=== PATIENT | female | born 1980 | race African-American/Black ===

== ENCOUNTER 2020-07-12 09:10 | Inpatient (IN) | payer BC, OTHER ==
[2020-07-12] MEDS ORDERED: Sodium Chloride 0.9% 10 ML Syringe FLUSH PRN (10:07)
[2020-07-12] MEDS ORDERED: Citric Acid/Sodium Citrate Solution 30 ML Cup PO ONE (10:07)
[2020-07-12] MEDS ORDERED: ceFAZolin 2 GM in Premix Bag 1 BAG IV ONE (10:07)
[2020-07-12] MEDS ORDERED: Sodium Chloride 0.9% 2.5 ML Syringe FLUSH PRN (10:07)
[2020-07-12] MEDS ORDERED: Sodium Chloride 0.9% 10 ML SDV IV PRN (10:07)
[2020-07-12] MEDS: Lactated Ringers 1,000 ML IV SCH ×4 (10:15→22:55)
[2020-07-12] MEDS ORDERED: Oxytocin/0.9 % Sodium Chloride 30 UNIT/500 ML BAG IV SCH (10:15)
[2020-07-12] MEDS ORDERED: Oxytocin 10 Units/1 ML SDV ONE (10:24)
[2020-07-12] MEDS ORDERED: Sodium Chloride 0.9% 20 ML ONE (10:25)
[2020-07-12] MEDS ORDERED: ceFAZolin 1 GM Vial ONE (10:25)
[2020-07-12] MEDS ORDERED: Morphine PF 10 MG/10 ML SDV ONE (10:34)
[2020-07-12] MEDS ORDERED: Citric Acid/Sodium Citrate Solution 30 ML Cup ONE (10:34)
[2020-07-12] MEDS ORDERED: Octyl 2-Cyanoacrylate 1 Tube ONE (10:43)
[2020-07-12] MEDS ORDERED: Misoprostol 200 MCG Tab RECTAL PRN (11:43)
[2020-07-12] MEDS ORDERED: Tranexamic Acid 1,000 MG in Sodium Chloride 0.9% 100 ML IV PRN (11:43)
[2020-07-12] MEDS ORDERED: Ondansetron 4 MG/2 ML SDV IVPUSH PRN (11:43)
[2020-07-12] MEDS ORDERED: Lanolin 100% Cream 7 GM Tube TOP PRN (11:43)
[2020-07-12] MEDS ORDERED: Oxytocin 10 Units/1 ML SDV IM PRN (11:43)
[2020-07-12] MEDS ORDERED: diphenhydrAMINE 50 MG/ML SDV IVPUSH PRN (11:43)
[2020-07-12] MEDS ORDERED: Methylergonovine 0.2 MG/1 ML Amp IM PRN (11:43)
[2020-07-12] MEDS ORDERED: Acetaminophen/oxyCODONE 325-5 MG Tab PO PRN ×2 (11:43)
[2020-07-12] MEDS ORDERED: Bisacodyl 10 MG Supp RECTAL PRN (11:43)
--- NOTE | 2020-07-12 11:43 | PCM.LDHP ---
L&D History of Present Illness - General Date of Service: 07/12/20 Admit Problem/Dx: Patient Status Order with Admit Dx/Problem 07/12/20 09:10 Patient Status [ADT] Routine 07/12/20 11:00 Admission Status [Patient Status] [ADT] Routine Admission Diagnosis/Problem Admission Diagnosis/Problem Source of Information: Patient History Limitations: Reports: No Limitations - History of Present Illness Improves with: Reports: None Worsens with: Reports: None Associated Symptoms: Reports: N - Related Data Allergies/Adverse Reactions: Allergies Allergy/AdvReac Type Severity Reaction Status Date / Time No Known Allergies Allergy Verified 07/12/20 09:22 Home Medications: Home Meds Pnv No.95/Ferrous Fum/Folic AC [ Vitamin Tablet] 1 tab PO DAILY 07/09/20 [History] H&P Review of Systems - Review of Systems: Review Of Systems: See Below General: Reports: No Symptoms HEENT: Reports: No Symptoms Pulmonary: Reports: No Symptoms Cardiovascular: Reports: No Symptoms Gastrointestinal: Reports: No Symptoms Genitourinary: Reports: No Symptoms Musculoskeletal: Reports: No Symptoms Skin: Reports: No Symptoms Psychiatric: Reports: No Symptoms Neurological: Reports: No Symptoms Hematologic/Lymphatic: Reports: No Symptoms Immunologic: Reports: No Symptoms L&D Exam - Exam Exam: See Below - Vital Signs Weight: 63.503 kg - OB Specific Contraction Intensity: Moderate Movement: Active Heart Tones: Present Presentation: Vertex - Paul Score Paul Score Cervix Position: Anterior Paul Score Consistency: Soft Paul Score Effacement: >80% Paul Score Dilation: 3-4 cm - Exam General: Alert, Oriented HEENT: PERRLA, Conjunctiva Clear, EACs Clear, EOMI, Hearing Intact, Mucosa Moist & [place], Nares Patent, Normal Nasal Septum, Posterior Pharynx Clear, TMs Clear Neck: Supple, Trachea Midline Lungs: Clear to Auscultation, Normal Respiratory Effort Cardiovascular: Regular Rate, Regular Rhythm GI/Abdominal Exam: Normal Bowel Sounds, Soft, Non-Tender, No Organomegaly, No Distention, No Abnormal Bruit, No Mass, Pelvis Stable Rectal Exam: Normal Exam, Normal Rectal Tone Genitourinary: Normal external exam, Normal bimanual exam, Normal speculum exam Back Exam: Normal Inspection, Full Range of Motion Extremities: Normal Inspection, Normal Range of Motion, Non-Tender, No Pedal Edema, Normal Capillary Refill Skin: Warm, Dry, Intact Neurological: Cranial Nerves Intact, Reflexes Equal Bilateral Psychiatric: Alert, Normal Affect, Normal Mood - Patient Data Lab Results Last 24 hrs: Laboratory Results - last 24 hr 07/12/20 07/12/20 Range/Units 10:20 10:45 WBC 7.13 (4.0-11.0) K/uL RBC 4.54 (4.30-5.90) M/uL Hgb 12.2 (12.0-16.0) g/dL Hct 37.6 (36.0-46.0) % MCV 82.8 (80.0-98.0) fL MCH 26.9 L (27.0-32.0) pg MCHC 32.4 (31.0-37.0) g/dL RDW Std Deviation 44.5 (28.0-62.0) fl RDW Coeff of Janeth 15 (11.0-15.0) % Plt Count 268 (150-400) K/uL MPV 10.50 (7.40-12.00) fL Nucleated RBC % 0.0 /100WBC Nucleated RBCs # 0 K/uL SARS-CoV-2 RNA (RAIN) POSITIVE H (NEGATIVE) Result Diagrams: 07/12/20 10:45 Problem List Initiated/Reviewed/Updated: Yes Orders Last 24hrs: Active Orders 24 hr Category Date Time Status Admission Status [Patient Status] [ADT] Routine ADT 07/12/20 11:00 Active Patient Status [ADT] Routine ADT 07/12/20 09:10 Active Non Stress Test [RC] PER UNIT ROUTINE Care 07/12/20 09:22 Active Notify Provider Vital Signs [RC] PRN Care 07/12/20 10:08 Active Procedure Site Prep Instruct [RC] ASDIRECTED Care 07/12/20 10:07 Active Up ad Aida [RC] ASDIRECTED Care 07/12/20 09:22 Active Vaginal Exam [RC] Click to Edit Care 07/12/20 09:22 Active Verify Patient Consent Obtain [RC] ASDIRECTED Care 07/12/20 10:07 Active Vital Signs [RC] PER UNIT ROUTINE Care 07/12/20 09:22 Active RPR (SYPHILIS SERO) W/ RFLX [REF] Routine Lab 07/12/20 10:07 Ordered TYPE AND SCREEN [BBK] Routine Lab 07/12/20 10:07 Ordered Lactated Ringers [Ringers, Lactated] 1,000 ml Med 07/12/20 10:15 Active IV BOLUS Oxytocin/0.9 % Sodium Chloride [Oxytocin 30 Unit/500 ML Med 07/12/20 10:15 Active -NS] 30 unit in 500 ml IV TITRATE Sodium Chloride 0.9% [Normal Saline] Med 07/12/20 10:07 Active 10 ml IV ASDIRECTED PRN Sodium Chloride 0.9% [Saline Flush] Med 07/12/20 10:07 Active 10 ml FLUSH ASDIRECTED PRN Sodium Chloride 0.9% [Saline Flush] Med 07/12/20 10:07 Active 2.5 ml FLUSH ASDIRECTED PRN Peripheral IV Insertion Adult [OM.PC] Routine Oth 07/12/20 10:07 Ordered Schedule Procedure [COMM] Per Unit Routine Oth 07/12/20 10:07 Ordered Resuscitation Status Routine Resus Stat 07/12/20 09:22 Ordered Medication Orders Lactated Ringer's (Ringers, Lactated) 1,000 mls @ 500 mls/hr IV BOLUS MATTIE Last Admin: 07/12/20 10:39 Dose: 999 mls/hr Documented by: Infusion: 07/12/20 10:39 Dose: 999 mls/hr Documented by: Admin: 07/12/20 10:15 Dose: 999 mls/hr Documented by: EILEEN Oxytocin/Sodium Chloride (Oxytocin 30 Unit/500 Ml-Ns) 30 unit in 500 mls @ 250 mls/hr IV TITRATE MATTIE Sodium Chloride (Sodium Chloride 0.9% 10 Ml Syringe) 10 ml FLUSH ASDIRECTED PRN PRN Reason: Keep Vein Open Sodium Chloride (Sodium Chloride 0.9% 2.5 Ml Syringe) 2.5 ml FLUSH ASDIRECTED PRN PRN Reason: Keep Vein Open Sodium Chloride (Sodium Chloride 0.9% 10 Ml Sdv) 10 ml IV ASDIRECTED PRN PRN Reason: IV Use Assessment/Plan Comment:: Sared uterus inactive labor.
--- NOTE | 2020-07-12 11:47 | PCM.OPNOTE ---
- General Post-Op/Procedure Note Date of Surgery/Procedure: 07/12/20 Operative Procedure(s): Primary C/section. Pre Op Diagnosis: [id number]+3 in active labor. Scared uterus. Post-Op Diagnosis: Same Anesthesia Technique: Spinal Primary Surgeon: Carlton Coughlin English Lecturer: Chanel Rivers EBL in mLs: 700 Complications: None Condition: Stable
[2020-07-12] MEDS: Ketorolac 30 MG/ML SDV IVPUSH SCH ×2 (13:25→19:33)
--- NOTE | 2020-07-12 13:44 | PCM.PREANE ---
Preanesthetic Assessment - Procedure Proposed Procedure: - Anesthesia/Transfusion/Family Hx Anesthesia History: Prior Anesthesia Without Reaction Family History of Anesthesia Reaction: No - Review of Systems General: No Symptoms Pulmonary: No Symptoms Cardiovascular: No Symptoms Gastrointestinal: No Symptoms Neurological: No Symptoms Other: Reports: None - Physical Assessment NPO Status Date: 07/12/20 NPO Status Time: 00:00 Vital Signs: Last Vital Signs Temp 97.0 F 07/12/20 12:04 Pulse 119 H 07/12/20 13:30 Resp 18 07/12/20 13:30 BP 124/79 07/12/20 13:30 Pulse Ox 97 07/12/20 13:30 Height: 5 ft 2 in Weight: 63.503 kg ASA Class: 2E Mental Status: Alert & Oriented x3 Airway Class: Mallampati = 1 Dentition: Reports: Normal Dentition ROM/Head Extension: Full Lungs: Clear to Auscultation, Normal Respiratory Effort Cardiovascular: Regular Rate, Regular Rhythm - Lab Values: Laboratory Last Values WBC 6.28 K/uL (4.0-11.0) 07/12/20 13:05 RBC 5.26 M/uL (4.30-5.90) 07/12/20 13:05 Hgb 14.4 g/dL (12.0-16.0) 07/12/20 13:05 Hct 43.4 % (36.0-46.0) 07/12/20 13:05 MCV 82.5 fL (80.0-98.0) 07/12/20 13:05 MCH 27.4 pg (27.0-32.0) 07/12/20 13:05 MCHC 33.2 g/dL (31.0-37.0) 07/12/20 13:05 RDW Std Deviation 44.5 fl (28.0-62.0) 07/12/20 13:05 RDW Coeff of Janeth 15 % (11.0-15.0) 07/12/20 13:05 Plt Count 240 K/uL (150-400) 07/12/20 13:05 MPV 10.20 fL (7.40-12.00) 07/12/20 13:05 Nucleated RBC % 1.0 /100WBC 07/12/20 13:05 Nucleated RBCs # 0 K/uL 07/12/20 13:05 SARS-CoV-2 RNA (RAIN) POSITIVE (NEGATIVE) H 07/12/20 10:20 - Allergies Allergies/Adverse Reactions: Allergies Allergy/AdvReac Type Severity Reaction Status Date / Time No Known Allergies Allergy Verified 07/12/20 09:22 - Acknowledgements Anesthesia Type Planned: Spinal Pt an Appropriate Candidate for the Planned Anesthesia: Yes Alternatives and Risks of Anesthesia Discussed w Pt/Guardian: Yes Pt/Guardian Understands and Agrees with Anesthesia Plan: Yes PreAnesthesia Questionnaire HEENT History: Reports: None Cardiovascular History: Reports: None Other Respiratory History: history of TB Gastrointestinal History: Reports: GERD Genitourinary History: Reports: None OPTICAL MANAGER History: Reports: LMP (Approximate): Musculoskeletal History: Reports: None Neurological History: Reports: None - Infectious Disease History Infectious Disease History: Reports: TB - HOME MEDS Home Medications: Home Meds Pnv No.95/Ferrous Fum/Folic AC [ Vitamin Tablet] 1 tab PO DAILY 07/09/20 [History] - CURRENT (IN HOUSE) MEDS Current Meds: Current Medications Bisacodyl (Bisacodyl 10 Mg Supp) 10 mg RECTAL ONETIME PRN PRN Reason: Constipation Diphenhydramine HCl (Diphenhydramine 50 Mg/Ml Sdv) 25 mg IVPUSH Q6H PRN PRN Reason: Itching or Nausea Docusate Sodium (Docusate Sodium 100 Mg Cap) 100 mg PO BID MATTIE Emollient Ointment (Lanolin 100% Cream 7 Gm Tube) 0 gm TOP ASDIRECTED PRN PRN Reason: Sore Nipples Lactated Ringer's (Ringers, Lactated) 1,000 mls @ 500 mls/hr IV BOLUS [facility] Last Admin: 07/12/20 10:39 Dose: 999 mls/hr Documented by: Oxytocin/Sodium Chloride (Oxytocin 30 Unit/500 Ml-Ns) 30 unit in 500 mls @ 250 mls/hr IV TITRATE MATTIE Lactated Ringer's (Ringers, Lactated) 1,000 mls @ 125 mls/hr IV ASDIRECTED MATTIE Tranexamic Acid 1,000 mg/ (Sodium Chloride) 110 mls @ 660 mls/hr IV ONETIME PRN PRN Reason: Bleeding Ibuprofen (Ibuprofen 800 Mg Tab) 800 mg PO Q8H PRN PRN Reason: mild pain or fever Ketorolac Tromethamine (Ketorolac 30 Mg/Ml Sdv) 30 mg IVPUSH Q6H MATTIE Stop: 07/13/20 11:46 Last Admin: 07/12/20 13:25 Dose: 30 mg Documented by: Methylergonovine Maleate (Methylergonovine 0.2 Mg/1 Ml Amp) 0.2 mg IM ONETIME PRN PRN Reason: Excessive Vaginal Bleeding Misoprostol (Misoprostol 200 Mcg Tab) 1,000 mcg RECTAL ONETIME PRN PRN Reason: excessive bleeding Ondansetron HCl (Ondansetron 4 Mg/2 Ml Sdv) 4 mg IVPUSH Q4H PRN PRN Reason: Nausea/Vomiting Oxycodone/Acetaminophen (Acetaminophen/Oxycodone 325-5 Mg Tab) 1 tab PO Q4H PRN PRN Reason: Pain (moderate 4-6) Oxycodone/Acetaminophen (Acetaminophen/Oxycodone 325-5 Mg Tab) 2 tab PO Q4H PRN PRN Reason: Pain (moderate 4-6) Oxytocin (Oxytocin 10 Units/1 Ml Sdv) 10 unit IM ASDIRECTED PRN PRN Reason: Excessive Vaginal Bleeding Sodium Chloride (Sodium Chloride 0.9% 10 Ml Syringe) 10 ml FLUSH ASDIRECTED PRN PRN Reason: Keep Vein Open Sodium Chloride (Sodium Chloride 0.9% 2.5 Ml Syringe) 2.5 ml FLUSH ASDIRECTED PRN PRN Reason: Keep Vein Open Sodium Chloride (Sodium Chloride 0.9% 10 Ml Sdv) 10 ml IV ASDIRECTED PRN PRN Reason: IV Use Discontinued Medications Cefazolin Sodium (Cefazolin 1 Gm Vial) Confirm Administered Dose 2 gm .ROUTE .STK-MED ONE Stop: 07/12/20 10:26 Citric Acid/Sodium Citrate (Citric Acid/Sodium Citrate Solution 30 Ml Cup) 30 ml PO ONETIME ONE Stop: 07/12/20 10:08 Citric Acid/Sodium Citrate (Citric Acid/Sodium Citrate Solution 30 Ml Cup) Confirm Administered Dose 30 ml .ROUTE .STK-MED ONE Stop: 07/12/20 10:35 Ephedrine Sulfate (Ephedrine Sulfate 50 Mg/10 Ml Vial) Confirm Administered Dose 50 mg .ROUTE .STK-MED ONE Stop: 07/12/20 12:13 Cefazolin Sodium/Dextrose 2 gm (/ Premix) 50 mls @ 100 mls/hr IV ONETIME ONE Stop: 07/12/20 10:36 Sodium Chloride (Normal Saline) Confirm Administered Dose 20 mls @ as directed .ROUTE .ST-MED ONE Stop: 07/12/20 10:26 Morphine Sulfate (Morphine Pf 10 Mg/10 Ml Sdv) Confirm Administered Dose 10 mg .ROUTE .ST-MED ONE Stop: 07/12/20 10:35 Octyl Cyanoacrylate (Octyl 2-Cyanoacrylate 1 Tube) Confirm Administered Dose 1 applic .ROUTE .ST-MED ONE Stop: 07/12/20 10:44 Oxytocin (Oxytocin 10 Units/1 Ml Sdv) Confirm Administered Dose 20 unit .ROUTE .ST-MED ONE Stop: 07/12/20 10:25
--- NOTE | 2020-07-12 13:47 | PCM.POSTAN ---
POST ANESTHESIA ASSESSMENT - MENTAL STATUS Mental Status: Alert, Oriented - VITAL SIGNS Vital Signs: Last Vital Signs Temp 97.0 F 07/12/20 12:04 Pulse 106 H 07/12/20 13:41 Resp 21 H 07/12/20 13:41 BP 132/94 H 07/12/20 13:41 Pulse Ox 99 07/12/20 13:41 - RESPIRATORY Respiratory Status: Respiratory Rate WNL, Airway Patent, O2 Saturation Stable - CARDIOVASCULAR CV Status: Pulse Rate WNL, Blood Pressure Stable - GASTROINTESTINAL GI Status: [place] Free Text/Narrative:: improved - PAIN Pain Score: 3 - POST OP HYDRATION Hydration Status: Adequate & Stable - OBSERVATIONS Free Text/Narrative:: Had issues with hypotension and 85% on room barbara. Treated with a fluid bolus, ephedrine and phenylephrine. Nasal cannula placed. BP and Sats improved over time.
[2020-07-12] MEDS: Simethicone 80 MG Tab.Chew PO PRN (19:33)
[2020-07-12] MEDS: Docusate Sodium 100 MG Cap PO SCH (20:00)
[2020-07-12] MEDS: Acetaminophen/oxyCODONE 325-5 MG Tab PO PRN (22:41)
[2020-07-12] MEDS ORDERED: hydrOXYzine HCl 25 MG Tab PO ONE (23:28)
[2020-07-13] MEDS: Simethicone 80 MG Tab.Chew PO PRN ×2 (01:49→09:05)
[2020-07-13] MEDS: Ketorolac 30 MG/ML SDV IVPUSH SCH ×3 (01:49→13:32)
--- NOTE | 2020-07-13 07:28 | PCM48HPAN ---
Post Anesthesia Note - EVALUATION WITHIN 48HRS OF ANESTHETIC Vital Signs in Normal Range: Yes Patient Participated in Evaluation: Yes Respiratory Function Stable: Yes Airway Patent: Yes Cardiovascular Function Stable: Yes Hydration Status Stable: Yes Pain Control Satisfactory: Yes Nausea and Vomiting Control Satisfactory: Yes Mental Status Recovered: Yes Vital Signs: Last Vital Signs Temp 97.5 F 07/13/20 05:00 Pulse 112 H 07/13/20 06:00 Resp 16 07/13/20 06:00 BP 111/77 07/13/20 05:00 Pulse Ox 96 07/13/20 06:00 - COMMENTS/OBSERVATIONS Free Text/Narrative:: Pt. reporting some pain overnight but that has improved this morning. Pt . has been up out of bed. Pt. reporting unable to urinate this morning.
--- NOTE | 2020-07-13 07:56 | PCM.PNPP ---
- General Info Date of Service: 07/13/20 Admission Dx/Problem (Free Text): Patient Status Order with Admit Dx/Problem 07/12/20 09:10 Patient Status [ADT] Routine 07/12/20 11:00 Admission Status [Patient Status] [ADT] Routine Admission Diagnosis/Problem Admission Diagnosis/Problem Subjective Update: Ambulating, tolerating diet, bonding well with baby. No concerns/complaints at this time except for mild postoperative pain as expected. Dressing removed; incision well approximated and without drainage. Functional Status: Reports: Pain Controlled, Tolerating Diet, Ambulating - Review of Systems General: Reports: No Symptoms HEENT: Reports: No Symptoms Pulmonary: Reports: No Symptoms Cardiovascular: Reports: No Symptoms Gastrointestinal: Reports: No Symptoms Genitourinary: Reports: No Symptoms Musculoskeletal: Reports: No Symptoms Skin: Reports: No Symptoms Neurological: Reports: No Symptoms Psychiatric: Reports: No Symptoms - General Info Date of Service: 07/13/20 - Patient Data Vital Signs - Most Recent: Last Vital Signs Temp 95.9 F L 07/13/20 07:48 Pulse 115 H 07/13/20 07:48 Resp 17 07/13/20 07:48 BP 111/69 07/13/20 07:48 Pulse Ox 94 L 07/13/20 07:48 Weight - Most Recent: 144 lb I&O - Last 24 Hours: Intake & Output 07/12/20 07/13/20 07/13/20 22:59 06:59 14:59 Intake Total 700 800 Output Total 200 300 Balance 500 500 Lab Results - Last 24 Hours: Laboratory Results - last 24 hr 07/12/20 07/12/20 07/12/20 Range/Units 10:20 10:45 13:05 WBC 7.13 (4.0-11.0) K/uL RBC 4.54 (4.30-5.90) M/uL Hgb 12.2 (12.0-16.0) g/dL Hct 37.6 (36.0-46.0) % MCV 82.8 (80.0-98.0) fL MCH 26.9 L (27.0-32.0) pg MCHC 32.4 (31.0-37.0) g/dL RDW Std Deviation 44.5 (28.0-62.0) fl RDW Coeff of Janeth 15 (11.0-15.0) % Plt Count 268 (150-400) K/uL MPV 10.50 (7.40-12.00) fL Nucleated RBC % 0.0 /100WBC Nucleated RBCs # 0 K/uL SARS-CoV-2 RNA (RAIN) POSITIVE H (NEGATIVE) Blood Type A POSITIVE Antibody Screen NEGATIVE 07/12/20 07/13/20 Range/Units 13:05 05:44 WBC 6.28 (4.0-11.0) K/uL RBC 5.26 (4.30-5.90) M/uL Hgb 14.4 14.1 (12.0-16.0) g/dL Hct 43.4 42.4 (36.0-46.0) % MCV 82.5 (80.0-98.0) fL MCH 27.4 (27.0-32.0) pg MCHC 33.2 (31.0-37.0) g/dL RDW Std Deviation 44.5 (28.0-62.0) fl RDW Coeff of Janeth 15 (11.0-15.0) % Plt Count 240 (150-400) K/uL MPV 10.20 (7.40-12.00) fL Nucleated RBC % 1.0 /100WBC Nucleated RBCs # 0 K/uL SARS-CoV-2 RNA (RAIN) (NEGATIVE) Blood Type Antibody Screen Med Orders - Current: Current Medications Bisacodyl (Bisacodyl 10 Mg Supp) 10 mg RECTAL ONETIME PRN PRN Reason: Constipation Diphenhydramine HCl (Diphenhydramine 50 Mg/Ml Sdv) 25 mg IVPUSH Q6H PRN PRN Reason: Itching or Nausea Docusate Sodium (Docusate Sodium 100 Mg Cap) 100 mg PO BID [facility] Last Admin: 07/12/20 20:00 Dose: 100 mg Documented by: Emollient Ointment (Lanolin 100% Cream 7 Gm Tube) 0 gm TOP ASDIRECTED PRN PRN Reason: Sore Nipples Lactated Ringer's (Ringers, Lactated) 1,000 mls @ 500 mls/hr IV BOLUS [facility] Last Admin: 07/12/20 10:39 Dose: 999 mls/hr Documented by: Oxytocin/Sodium Chloride (Oxytocin 30 Unit/500 Ml-Ns) 30 unit in 500 mls @ 250 mls/hr IV TITRATE [facility] Lactated Ringer's (Ringers, Lactated) 1,000 mls @ 125 mls/hr IV ASDIRECTED [facility] Last Admin: 07/12/20 22:55 Dose: 125 mls/hr Documented by: Tranexamic Acid 1,000 mg/ (Sodium Chloride) 110 mls @ 660 mls/hr IV ONETIME PRN PRN Reason: Bleeding Ibuprofen (Ibuprofen 800 Mg Tab) 800 mg PO Q8H PRN PRN Reason: mild pain or fever Ketorolac Tromethamine (Ketorolac 30 Mg/Ml Sdv) 30 mg IVPUSH Q6H [facility] Stop: 07/13/20 11:46 Last Admin: 07/13/20 01:49 Dose: 30 mg Documented by: Methylergonovine Maleate (Methylergonovine 0.2 Mg/1 Ml Amp) 0.2 mg IM ONETIME PRN PRN Reason: Excessive Vaginal Bleeding Misoprostol (Misoprostol 200 Mcg Tab) 1,000 mcg RECTAL ONETIME PRN PRN Reason: excessive bleeding Ondansetron HCl (Ondansetron 4 Mg/2 Ml Sdv) 4 mg IVPUSH Q4H PRN PRN Reason: Nausea/Vomiting Oxycodone/Acetaminophen (Acetaminophen/Oxycodone 325-5 Mg Tab) 1 tab PO Q4H PRN PRN Reason: Pain (moderate 4-6) Oxycodone/Acetaminophen (Acetaminophen/Oxycodone 325-5 Mg Tab) 2 tab PO Q4H PRN PRN Reason: Pain (severe 7-10) Last Admin: 07/12/20 22:41 Dose: 2 tab Documented by: Oxytocin (Oxytocin 10 Units/1 Ml Sdv) 10 unit IM ASDIRECTED PRN PRN Reason: Excessive Vaginal Bleeding Simethicone (Simethicone 80 Mg Tab.Chew) 80 mg PO Q6H PRN PRN Reason: Indigestion Last Admin: 07/13/20 01:49 Dose: 80 mg Documented by: Sodium Chloride (Sodium Chloride 0.9% 10 Ml Syringe) 10 ml FLUSH ASDIRECTED PRN PRN Reason: Keep Vein Open Sodium Chloride (Sodium Chloride 0.9% 2.5 Ml Syringe) 2.5 ml FLUSH ASDIRECTED PRN PRN Reason: Keep Vein Open Sodium Chloride (Sodium Chloride 0.9% 10 Ml Sdv) 10 ml IV ASDIRECTED PRN PRN Reason: IV Use Discontinued Medications Cefazolin Sodium (Cefazolin 1 Gm Vial) Confirm Administered Dose 2 gm .ROUTE .STK-MED ONE Stop: 07/12/20 10:26 Citric Acid/Sodium Citrate (Citric Acid/Sodium Citrate Solution 30 Ml Cup) 30 ml PO ONETIME ONE Stop: 07/12/20 10:08 Citric Acid/Sodium Citrate (Citric Acid/Sodium Citrate Solution 30 Ml Cup) Confirm Administered Dose 30 ml .ROUTE .STK-MED ONE Stop: 07/12/20 10:35 Ephedrine Sulfate (Ephedrine Sulfate 50 Mg/10 Ml Vial) Confirm Administered Dose 50 mg .ROUTE .STK-MED ONE Stop: 07/12/20 12:13 Hydroxyzine HCl (Hydroxyzine Hcl 25 Mg Tab) 50 mg PO ONETIME ONE Stop: 07/12/20 23:29 Last Admin: 07/12/20 23:41 Dose: 50 mg Documented by: Cefazolin Sodium/Dextrose 2 gm (/ Premix) 50 mls @ 100 mls/hr IV ONETIME ONE Stop: 07/12/20 10:36 Sodium Chloride (Normal Saline) Confirm Administered Dose 20 mls @ as directed .ROUTE .STK-MED ONE Stop: 07/12/20 10:26 Morphine Sulfate (Morphine Pf 10 Mg/10 Ml Sdv) Confirm Administered Dose 10 mg .ROUTE .STK-MED ONE Stop: 07/12/20 10:35 Octyl Cyanoacrylate (Octyl 2-Cyanoacrylate 1 Tube) Confirm Administered Dose 1 applic .ROUTE .STK-MED ONE Stop: 07/12/20 10:44 Oxycodone/Acetaminophen (Acetaminophen/Oxycodone 325-5 Mg Tab) 2 tab PO Q4H PRN PRN Reason: Pain (moderate 4-6) Oxytocin (Oxytocin 10 Units/1 Ml Sdv) Confirm Administered Dose 20 unit .ROUTE .STK-MED ONE Stop: 07/12/20 10:25 - Infant Interaction Infant Disposition, : [place] in Room with Family Interaction: Other (see below) (FOB holding baby) Feeding: Bottle Fed Infant Support Person: - Recovery Exam Fundal Tone: Firm Fundal Level: At Umbilicus Fundal Placement: Midline Lochia Amount: Scant Lochia Color: Rubra/Red Perineum Description: Intact, Minimal Bruising/Swelling Episiotomy/Laceration: None Bladder Status: Indwelling Catheter in Place Urinary Elimination: Other (see below) Other Urinary Elimination, : due to void - Exam General: Alert, Oriented, Cooperative, No Acute Distress Lungs: Normal Respiratory Effort Cardiovascular: Regular Rate, Regular Rhythm GI/Abdominal Exam: Soft, Non-Tender Extremities: Normal Inspection Skin: Warm, Dry, Intact Wound/Incisions: Healing Well Neurological: No New Focal Deficit Psy/Mental Status: Alert, Normal Affect, Normal Mood - Problem List & Annotations (1) S/P primary low transverse SNOMED Code(s): 074101885, [id number], [id number], [id number], [id number] Code(s): Z98.891 - HISTORY OF UTERINE SCAR FROM PREVIOUS SURGERY Status: Acute Priority: High Current Visit: Yes - Problem List Review Problem List Initiated/Reviewed/Updated: Yes - My Orders Last 24 Hours: My Active Orders 07/12/20 20:00 Simethicone 80 mg PO Q6H PRN - Plan Plan:: Sared uterus inactive labor. PP Day1 A: Ambulating, tolerating diet, bonding well with baby. No concerns/complaints at this time except for mild postoperative pain as expected. Dressing removed; incision well approximated and without drainage. P: Routine plan of care.
[2020-07-13] MEDS: Docusate Sodium 100 MG Cap PO SCH (09:05)
[2020-07-13] MEDS: Acetaminophen/oxyCODONE 325-5 MG Tab PO PRN (17:33)
[2020-07-13] MEDS: Lactated Ringers 1,000 ML IV SCH (20:19)
[2020-07-14] MEDS: Acetaminophen/oxyCODONE 325-5 MG Tab PO PRN ×3 (01:08→20:27)
[2020-07-14] MEDS: Docusate Sodium 100 MG Cap PO SCH ×3 (01:09→20:29)
[2020-07-14] MEDS: Lactated Ringers 1,000 ML IV SCH (01:09)
[2020-07-14] MEDS: Simethicone 80 MG Tab.Chew PO PRN ×3 (08:38→21:52)
[2020-07-14] MEDS: Ibuprofen 800 MG Tab PO PRN ×2 (09:34→17:03)
--- NOTE | 2020-07-14 10:34 | OR ---
SURGEON: Carlton Coughlin MD DATE OF PROCEDURE: 07/12/2020 PREOPERATIVE DIAGNOSES: 1. Intrauterine at 38+ three weeks, in active labor. 2. 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 POSTOPERATIVE DIAGNOSES: 1. Intrauterine at 38+ three weeks, in active labor. 2. 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 OPERATION PERFORMED: Primary low transverse section. PRIMARY SURGEON: Carlton Coughlin MD. OCCUPATIONAL HEALTH AND SAFETY OFFICER: Chanel Rivers, certified nurse spring coverer. ANESTHESIA: Spinal. ESTIMATED BLOOD LOSS: 700 mL. COMPLICATIONS: None. FINDING: Female fetus. score reported to be 8 and 9. Weight is not available. Normal uterus, tubes, and ovaries. INDICATION FOR SURGERY: This patient is a 40-year-old. She is followed in our clinic. She is a primigravida. She previously had a myomectomy in [place] which is confirmed by operative report and the patient is going to have a primary section. She presented today to Labor and Delivery in active labor. She was scheduled to have section next , but because she is in active labor and she is dilated, we are proceeding with her primary today. PROCEDURE IN DETAIL: The patient was brought to the OR, properly identified. After adequate level of spinal anesthesia with a Kang catheter in the bladder, the patient was prepped and draped in sterile fashion as usual. Low transverse Pfannenstiel skin incision was done excising the old scar from her myomectomy. The Bernice fascia and rectus fascia were opened in direction of the incision. The two recti muscles were . Peritoneal cavity was entered. Bladder flap was raised in the usual manner and retracted from the lower uterine segment. Low- transverse uterine incision was done and extended manually with hand. Fetus was in a vertex position, delivered immediately without any problem, cried immediately, and later on the score reported to be 8 and 9. The weight was not available. The placenta delivered spontaneous, complete, and intact. Repair of the lower uterine segment was done with 2-0 Vicryl continuous interlocking in two layers. Reperitonealization done with 3-0 Vicryl continuous. Inspection of the lower uterine segment showed no oozing, no bleeding. The peritoneal cavity evacuated completely from all blood and blood clot, and closed with 3-0 Vicryl continuous. The rectus fascia was closed with #1 double strand PDS continuous, the Bernice fascia with 3-0 Vicryl continuous, and the skin closed with 3-0 Vicryl on a Andres needle in a subcuticular fashion. Instrument and sponge count was correct. The patient tolerated the procedure well, went to recovery room in stable general condition. JW / LANCE /[id number]
[2020-07-14] MEDS ORDERED: Furosemide 20 MG Tab PO ONE (17:00)
--- NOTE | 2020-07-14 17:01 | PCM.PNPP ---
- General Info Date of Service: 07/14/20 Admission Dx/Problem (Free Text): Patient Status Order with Admit Dx/Problem 07/12/20 09:10 Patient Status [ADT] Routine 07/12/20 11:00 Admission Status [Patient Status] [ADT] Routine Admission Diagnosis/Problem Admission Diagnosis/Problem Subjective Update: Doing better. Ambulating, tolerating diet, bonding well with baby. Pain better controlled with ibuprofen and percocet. Kang cath was removed and patient able to void 300cc. Denies dysuria or difficulty emptying her bladder. Reports some SOB. But denies CP, palpitations, dizziness. Incision well approximated and without drainage. Functional Status: Reports: Pain Controlled - Review of Systems HEENT: Reports: No Symptoms Pulmonary: Reports: Shortness of Breath Cardiovascular: Reports: No Symptoms Gastrointestinal: Reports: No Symptoms Genitourinary: Reports: No Symptoms Musculoskeletal: Reports: No Symptoms Skin: Reports: No Symptoms Psychiatric: Reports: No Symptoms - General Info Date of Service: 07/14/20 - Patient Data Vital Signs - Most Recent: Last Vital Signs Temp 95.5 F L 07/14/20 16:00 Pulse 129 H 07/14/20 16:00 Resp 23 H 07/14/20 16:00 BP 124/57 L 07/14/20 16:00 Pulse Ox 91 L 07/14/20 16:00 Weight - Most Recent: 65.317 kg I&O - Last 24 Hours: Intake & Output 07/14/20 07/14/20 07/14/20 06:59 14:59 22:59 Output Total 450 200 Balance -450 -200 Lab Results - Last 24 Hours: Laboratory Results - last 24 hr 07/12/20 07/13/20 Range/Units 13:05 22:10 WBC 5.78 (4.0-11.0) K/uL RBC 4.81 (4.30-5.90) M/uL Hgb 13.1 (12.0-16.0) g/dL Hct 38.3 (36.0-46.0) % MCV 79.6 L (80.0-98.0) fL MCH 27.2 (27.0-32.0) pg MCHC 34.2 (31.0-37.0) g/dL RDW Std Deviation 40.9 (28.0-62.0) fl RDW Coeff of Janeth 15 (11.0-15.0) % Plt Count 370 (150-400) K/uL MPV 10.90 (7.40-12.00) fL Add Manual Diff YES Neutrophils % (Manual) 9 L (48.0-80.0) % Band Neutrophils % 65 % Lymphocytes % (Manual) 9 L (16.0-40.0) % Monocytes % (Manual) 17 H (0.0-15.0) % Nucleated RBC % 0.8 /100WBC Absolute Seg Neuts 0.5 L (1.4-5.7) Band Neutrophils # 3.8 Lymphocytes # (Manual) 0.5 L (0.6-2.4) Monocytes # (Manual) 1.0 H (0.0-0.8) Nucleated RBCs # 0 K/uL RPR Non-Reac (Non-Reac) Med Orders - Current: Current Medications Bisacodyl (Bisacodyl 10 Mg Supp) 10 mg RECTAL ONETIME PRN PRN Reason: Constipation Diphenhydramine HCl (Diphenhydramine 50 Mg/Ml Sdv) 25 mg IVPUSH Q6H PRN PRN Reason: Itching or Nausea Docusate Sodium (Docusate Sodium 100 Mg Cap) 100 mg PO BID [facility] Last Admin: 07/14/20 08:16 Dose: 100 mg Documented by: Emollient Ointment (Lanolin 100% Cream 7 Gm Tube) 0 gm TOP ASDIRECTED PRN PRN Reason: Sore Nipples Furosemide (Furosemide 20 Mg Tab) 20 mg PO ONETIME ONE Stop: 07/14/20 17:01 Lactated Ringer's (Ringers, Lactated) 1,000 mls @ 500 mls/hr IV BOLUS [facility] Last Admin: 07/12/20 10:39 Dose: 999 mls/hr Documented by: Oxytocin/Sodium Chloride (Oxytocin 30 Unit/500 Ml-Ns) 30 unit in 500 mls @ 250 mls/hr IV TITRATE MATTIE Lactated Ringer's (Ringers, Lactated) 1,000 mls @ 125 mls/hr IV ASDIRECTED [facility] Last Admin: 07/14/20 01:09 Dose: 125 mls/hr Documented by: Tranexamic Acid 1,000 mg/ (Sodium Chloride) 110 mls @ 660 mls/hr IV ONETIME PRN PRN Reason: Bleeding Ibuprofen (Ibuprofen 800 Mg Tab) 800 mg PO Q8H PRN PRN Reason: mild pain or fever Last Admin: 07/14/20 09:34 Dose: 800 mg Documented by: Methylergonovine Maleate (Methylergonovine 0.2 Mg/1 Ml Amp) 0.2 mg IM ONETIME PRN PRN Reason: Excessive Vaginal Bleeding Misoprostol (Misoprostol 200 Mcg Tab) 1,000 mcg RECTAL ONETIME PRN PRN Reason: excessive bleeding Ondansetron HCl (Ondansetron 4 Mg/2 Ml Sdv) 4 mg IVPUSH Q4H PRN PRN Reason: Nausea/Vomiting Oxycodone/Acetaminophen (Acetaminophen/Oxycodone 325-5 Mg Tab) 1 tab PO Q4H PRN PRN Reason: Pain (moderate 4-6) Oxycodone/Acetaminophen (Acetaminophen/Oxycodone 325-5 Mg Tab) 2 tab PO Q4H PRN PRN Reason: Pain (severe 7-10) Last Admin: 07/14/20 08:16 Dose: 2 tab Documented by: Oxytocin (Oxytocin 10 Units/1 Ml Sdv) 10 unit IM ASDIRECTED PRN PRN Reason: Excessive Vaginal Bleeding Simethicone (Simethicone 80 Mg Tab.Chew) 80 mg PO Q6H PRN PRN Reason: Indigestion Last Admin: 07/14/20 16:10 Dose: 80 mg Documented by: Sodium Chloride (Sodium Chloride 0.9% 10 Ml Syringe) 10 ml FLUSH ASDIRECTED PRN PRN Reason: Keep Vein Open Sodium Chloride (Sodium Chloride 0.9% 2.5 Ml Syringe) 2.5 ml FLUSH ASDIRECTED PRN PRN Reason: Keep Vein Open Sodium Chloride (Sodium Chloride 0.9% 10 Ml Sdv) 10 ml IV ASDIRECTED PRN PRN Reason: IV Use Discontinued Medications Cefazolin Sodium (Cefazolin 1 Gm Vial) Confirm Administered Dose 2 gm .ROUTE .STK-MED ONE Stop: 07/12/20 10:26 Citric Acid/Sodium Citrate (Citric Acid/Sodium Citrate Solution 30 Ml Cup) 30 ml PO ONETIME ONE Stop: 07/12/20 10:08 Last Admin: 07/14/20 03:57 Dose: Not Given Documented by: Citric Acid/Sodium Citrate (Citric Acid/Sodium Citrate Solution 30 Ml Cup) Confirm Administered Dose 30 ml .ROUTE .STK-MED ONE Stop: 07/12/20 10:35 Last Admin: 07/14/20 03:57 Dose: Not Given Documented by: Ephedrine Sulfate (Ephedrine Sulfate 50 Mg/10 Ml Vial) Confirm Administered Dose 50 mg .ROUTE .STK-MED ONE Stop: 07/12/20 12:13 Hydroxyzine HCl (Hydroxyzine Hcl 25 Mg Tab) 50 mg PO ONETIME ONE Stop: 07/12/20 23:29 Last Admin: 07/12/20 23:41 Dose: 50 mg Documented by: Cefazolin Sodium/Dextrose 2 gm (/ Premix) 50 mls @ 100 mls/hr IV ONETIME ONE Stop: 07/12/20 10:36 Last Admin: 07/14/20 03:57 Dose: Not Given Documented by: Sodium Chloride (Normal Saline) Confirm Administered Dose 20 mls @ as directed .ROUTE .STK-MED ONE Stop: 07/12/20 10:26 Ketorolac Tromethamine (Ketorolac 30 Mg/Ml Sdv) 30 mg IVPUSH Q6H MATTIE Stop: 07/13/20 11:46 Last Admin: 07/13/20 13:32 Dose: 30 mg Documented by: Morphine Sulfate (Morphine Pf 10 Mg/10 Ml Sdv) Confirm Administered Dose 10 mg .ROUTE .STK-MED ONE Stop: 07/12/20 10:35 Octyl Cyanoacrylate (Octyl 2-Cyanoacrylate 1 Tube) Confirm Administered Dose 1 applic .ROUTE .STK-MED ONE Stop: 07/12/20 10:44 Last Admin: 07/14/20 03:57 Dose: Not Given Documented by: Oxycodone/Acetaminophen (Acetaminophen/Oxycodone 325-5 Mg Tab) 2 tab PO Q4H PRN PRN Reason: Pain (moderate 4-6) Oxytocin (Oxytocin 10 Units/1 Ml Sdv) Confirm Administered Dose 20 unit .ROUTE .STK-MED ONE Stop: 07/12/20 10:25 - Interaction Infant Disposition, : in Room with Family Infant Interaction: Other (see below) (FOB holding baby) Feeding: Bottle Fed Infant Support Person: - Recovery Exam Fundal Tone: Firm Fundal Level: At Umbilicus Fundal Placement: Midline Lochia Amount: Scant Lochia Color: Rubra/Red Perineum Description: Intact, Minimal Bruising/Swelling Episiotomy/Laceration: None Bladder Status: Voiding, Indwelling Catheter in Place Urinary Elimination: Voided, Other (see below) Other Urinary Elimination, : attempted to void but could not - Exam General: Alert, Oriented Lungs: Crackles Cardiovascular: Regular Rate, Regular Rhythm, Tachycardia GI/Abdominal Exam: Soft Extremities: Pedal Edema Wound/Incisions: Healing Well Psy/Mental Status: Alert, Normal Affect, Normal Mood - Problem List & Annotations (1) S/P primary low transverse SNOMED Code(s): 701955383, 02831258, 901743789, 967735690, 032044414 Code(s): Z98.891 - HISTORY OF UTERINE SCAR FROM PREVIOUS SURGERY Status: Acute Priority: High Current Visit: Yes - Problem List Review Problem List Initiated/Reviewed/Updated: Yes - My Orders Last 24 Hours: My Active Orders 07/14/20 17:00 Furosemide [Lasix] 20 mg PO ONETIME ONE - Plan Plan:: PP Day2 A: Ambulating, tolerating diet, bonding well with baby. Kang cath removed and voiding SOB and lower lobes crackles on auscultation. O2 sat have been normal for the most part. Low concern for PE. P: Routine plan of care. 20mg Lasix 1 time
[2020-07-15] MEDS: Ibuprofen 800 MG Tab PO PRN (01:10)
[2020-07-15] MEDS ORDERED: cefOXitin 1 GM in Premix Bag 1 BAG IV ONE (05:00)
--- NOTE | 2020-07-15 06:05 | CR ---
Indication: Hypothermia, COVID 19 infection, hypoglycemia Technique: Chest 1 view Comparison: April 29, 2019 Findings/Impression: Normal cardiomediastinal silhouette. Lung volumes are low. Faint opacities at both lung bases likely represent atelectasis or COVID-19 infection. No pneumothorax. No acute osseous abnormality. Dictated by Anisha Contreras MD @ 07/15/2020 6:04:[address] Anisha Contreras @ Jul 15 2020 6:04AM
--- NOTE | 2020-07-15 06:07 | CR ---
Indication: Hypothermia, hypoglycemia Technique: KUB supine view Comparison: None Findings/Impression: : Air-filled but nondilated loops of small bowel right lower quadrant. No definite free air identified on this supine view. No pneumatosis. No abnormal calcifications. Osseous structures intact. Consider CT abdomen pelvis for further evaluation. Dictated by Anisha Contreras MD @ 07/15/2020 6:06:[address] Anisha Contreras @ Jul 15 2020 6:06AM
[2020-07-15 06:48] LABS: BLOOD UREA NITROGEN,BUN 31 mg/dL (7.0-18.0); CHLORIDE,CL 102 mmol/L (98-107); POTASSIUM,K 5.3 mmol/L (3.5-5.1); SODIUM,NA 136 mmol/L (136-145)
[2020-07-15] MEDS ORDERED: 25% Dextrose in Water 10 ML Syringe IVPUSH ONE (07:02)
[2020-07-15 07:06] LABS: GLUCOSE RANDOM 22 mg/dL (74-106)
[2020-07-15] MEDS ORDERED: 50% Dextrose in Water 50 ML Syringe IVPUSH ONE ×2 (07:14→11:07)
--- NOTE | 2020-07-15 07:14 | PCM.PNPP ---
- General Info Date of Service: 07/15/20 Admission Dx/Problem (Free Text): Patient Status Order with Admit Dx/Problem 07/12/20 09:10 Patient Status [ADT] Routine 07/12/20 11:00 Admission Status [Patient Status] [ADT] Routine Admission Diagnosis/Problem Admission Diagnosis/Problem Subjective Update: Overnight, patient was found to be hypothermic (94) which improved upon repeat. She also reports feeling cold, cold sweats and increased fatigue, abdominal tenderness and distention. VS were otherwise wnl. Her BG was reportedly 22 Denied dysuria or difficulty emptying her bladder. She had a recent UOP of 40 0cc dark yellow. Reports some SOB. But denies CP, palpitations, dizziness. Functional Status: Reports: New Symptoms - Review of Systems General: Reports: No Symptoms, Weakness, Fatigue, Chills HEENT: Reports: No Symptoms Pulmonary: Reports: Shortness of Breath Cardiovascular: Reports: No Symptoms Gastrointestinal: Reports: Abdominal Pain, Other Genitourinary: Reports: No Symptoms Musculoskeletal: Reports: No Symptoms Skin: Reports: No Symptoms Neurological: Reports: No Symptoms Psychiatric: Reports: No Symptoms Systems Review Comment:: Abd distention and diffuse tenderness - General Info Date of Service: 07/15/20 - Patient Data Vital Signs - Most Recent: Last Vital Signs Temp 84.5 F L 07/15/20 03:00 Pulse 107 H 07/15/20 03:00 Resp 24 H 07/15/20 03:00 BP 106/78 07/15/20 03:00 Pulse Ox 96 07/15/20 03:00 Weight - Most Recent: 65.317 kg Lab Results - Last 24 Hours: Laboratory Results - last 24 hr 07/12/20 07/15/20 07/15/20 Range/Units 13:05 04:30 04:30 WBC 3.69 L (4.0-11.0) K/uL RBC 5.74 (4.30-5.90) M/uL Hgb 15.8 (12.0-16.0) g/dL Hct 44.3 (36.0-46.0) % MCV 77.2 L (80.0-98.0) fL MCH 27.5 (27.0-32.0) pg MCHC 35.7 (31.0-37.0) g/dL RDW Std Deviation 40.8 (28.0-62.0) fl RDW Coeff of Janeth 15 (11.0-15.0) % Plt Count 353 (150-400) K/uL MPV 10.90 (7.40-12.00) fL Nucleated RBC % 1.5 /100WBC Nucleated RBCs # 0 K/uL Sodium (136-145) mmol/L Potassium (3.5-5.1) mmol/L Chloride (98-107) mmol/L Carbon Dioxide (21.0-32.0) mmol/L BUN (7.0-18.0) mg/dL Creatinine (0.6-1.0) mg/dL Est Cr Clr Drug Dosing mL/min Estimated GFR (MDRD) ml/min Glucose 19 L* (74-106) mg/dL Calcium (8.5-10.1) mg/dL Total Bilirubin (0.2-1.0) mg/dL ALT (14-63) IU/L Alkaline Phosphatase (46-116) U/L Total Protein (6.4-8.2) g/dL Albumin (3.4-5.0) g/dL Globulin (2.6-4.0) g/dL Albumin/Globulin Ratio (0.9-1.6) Urine Color Urine Appearance Urine pH (5.0-8.0) Ur Specific Rosebud (1.001-1.035) Urine Protein (NEGATIVE) mg/dL Urine Glucose (UA) (NEGATIVE) mg/dL Urine Ketones (NEGATIVE) mg/dL Urine Occult Blood (NEGATIVE) Urine Nitrite (NEGATIVE) Urine Bilirubin (NEGATIVE) Urine Ictotest Urine Urobilinogen (<2.0) EU/dL Ur Leukocyte Esterase (NEGATIVE) U Hyaline Cast (Auto) (0-2/LPF) Urine RBC (0-2/HPF) Urine WBC (0-5/HPF) Ur Epithelial Cells (NONE-FEW) Urine Bacteria (NEGATIVE) Urine Mucus (NONE-MOD) RPR Non-Reac (Non-Reac) 07/15/20 07/15/20 Range/Units 04:30 04:40 WBC (4.0-11.0) K/uL RBC (4.30-5.90) M/uL Hgb (12.0-16.0) g/dL Hct (36.0-46.0) % MCV (80.0-98.0) fL MCH (27.0-32.0) pg MCHC (31.0-37.0) g/dL RDW Std Deviation (28.0-62.0) fl RDW Coeff of Janeth (11.0-15.0) % Plt Count (150-400) K/uL MPV (7.40-12.00) fL Nucleated RBC % /100WBC Nucleated RBCs # K/uL Sodium 136 (136-145) mmol/L Potassium 5.3 H (3.5-5.1) mmol/L Chloride 102 (98-107) mmol/L Carbon Dioxide 13.0 L (21.0-32.0) mmol/L BUN 31 H (7.0-18.0) mg/dL Creatinine 1.0 (0.6-1.0) mg/dL Est Cr Clr Drug Dosing 61.86 mL/min Estimated GFR (MDRD) > 60.0 ml/min Glucose 22 L* (74-106) mg/dL Calcium 7.3 L (8.5-10.1) mg/dL Total Bilirubin 0.2 (0.2-1.0) mg/dL ALT 16 (14-63) IU/L Alkaline Phosphatase 105 (46-116) U/L Total Protein 4.8 L (6.4-8.2) g/dL Albumin 1.4 L (3.4-5.0) g/dL Globulin 3.4 (2.6-4.0) g/dL Albumin/Globulin Ratio 0.4 L (0.9-1.6) Urine Color DARK YELLOW Urine Appearance SLT CLOUDY Urine pH 5.5 (5.0-8.0) Ur Specific Rosebud 1.025 (1.001-1.035) Urine Protein 30 H (NEGATIVE) mg/dL Urine Glucose (UA) NEGATIVE (NEGATIVE) mg/dL Urine Ketones NEGATIVE (NEGATIVE) mg/dL Urine Occult Blood MODERATE H (NEGATIVE) Urine Nitrite NEGATIVE (NEGATIVE) Urine Bilirubin MODERATE H (NEGATIVE) Urine Ictotest NEGATIVE Urine Urobilinogen 1.0 (<2.0) EU/dL Ur Leukocyte Esterase NEGATIVE (NEGATIVE) U Hyaline Cast (Auto) 0-2 (0-2/LPF) Urine RBC 3-6 (0-2/HPF) Urine WBC 0-3 (0-5/HPF) Ur Epithelial Cells RARE (NONE-FEW) Urine Bacteria FEW (NEGATIVE) Urine Mucus LIGHT (NONE-MOD) RPR (Non-Reac) Med Orders - Current: Current Medications Bisacodyl (Bisacodyl 10 Mg Supp) 10 mg RECTAL ONETIME PRN PRN Reason: Constipation Dextrose/Water (25% Dextrose In Water 10 Ml Syringe) 20 ml IVPUSH ONETIME ONE Stop: 07/15/20 07:03 Diphenhydramine HCl (Diphenhydramine 50 Mg/Ml Sdv) 25 mg IVPUSH Q6H PRN PRN Reason: Itching or Nausea Last Admin: 07/15/20 06:25 Dose: 25 mg Documented by: Docusate Sodium (Docusate Sodium 100 Mg Cap) 100 mg PO BID [facility] Last Admin: 07/14/20 20:29 Dose: 100 mg Documented by: Emollient Ointment (Lanolin 100% Cream 7 Gm Tube) 0 gm TOP ASDIRECTED PRN PRN Reason: Sore Nipples Lactated Ringer's (Ringers, Lactated) 1,000 mls @ 500 mls/hr IV BOLUS [facility] Last Admin: 07/12/20 10:39 Dose: 999 mls/hr Documented by: Oxytocin/Sodium Chloride (Oxytocin 30 Unit/500 Ml-Ns) 30 unit in 500 mls @ 250 mls/hr IV TITRATE [facility] Lactated Ringer's (Ringers, Lactated) 1,000 mls @ 125 mls/hr IV ASDIRECTED [facility] Last Admin: 07/14/20 01:09 Dose: 125 mls/hr Documented by: Tranexamic Acid 1,000 mg/ (Sodium Chloride) 110 mls @ 660 mls/hr IV ONETIME PRN PRN Reason: Bleeding Ibuprofen (Ibuprofen 800 Mg Tab) 800 mg PO Q8H PRN PRN Reason: mild pain or fever Last Admin: 07/15/20 01:10 Dose: 800 mg Documented by: Methylergonovine Maleate (Methylergonovine 0.2 Mg/1 Ml Amp) 0.2 mg IM ONETIME PRN PRN Reason: Excessive Vaginal Bleeding Misoprostol (Misoprostol 200 Mcg Tab) 1,000 mcg RECTAL ONETIME PRN PRN Reason: excessive bleeding Ondansetron HCl (Ondansetron 4 Mg/2 Ml Sdv) 4 mg IVPUSH Q4H PRN PRN Reason: Nausea/Vomiting Oxycodone/Acetaminophen (Acetaminophen/Oxycodone 325-5 Mg Tab) 1 tab PO Q4H PRN PRN Reason: Pain (moderate 4-6) Oxycodone/Acetaminophen (Acetaminophen/Oxycodone 325-5 Mg Tab) 2 tab PO Q4H PRN PRN Reason: Pain (severe 7-10) Last Admin: 07/14/20 20:27 Dose: 2 tab Documented by: Oxytocin (Oxytocin 10 Units/1 Ml Sdv) 10 unit IM ASDIRECTED PRN PRN Reason: Excessive Vaginal Bleeding Simethicone (Simethicone 80 Mg Tab.Chew) 80 mg PO Q6H PRN PRN Reason: Indigestion Last Admin: 07/14/20 21:52 Dose: 80 mg Documented by: Sodium Chloride (Sodium Chloride 0.9% 10 Ml Syringe) 10 ml FLUSH ASDIRECTED PRN PRN Reason: Keep Vein Open Sodium Chloride (Sodium Chloride 0.9% 2.5 Ml Syringe) 2.5 ml FLUSH ASDIRECTED PRN PRN Reason: Keep Vein Open Sodium Chloride (Sodium Chloride 0.9% 10 Ml Sdv) 10 ml IV ASDIRECTED PRN PRN Reason: IV Use Discontinued Medications Cefazolin Sodium (Cefazolin 1 Gm Vial) Confirm Administered Dose 2 gm .ROUTE .STK-MED ONE Stop: 07/12/20 10:26 Citric Acid/Sodium Citrate (Citric Acid/Sodium Citrate Solution 30 Ml Cup) 30 ml PO ONETIME ONE Stop: 07/12/20 10:08 Last Admin: 07/14/20 03:57 Dose: Not Given Documented by: Citric Acid/Sodium Citrate (Citric Acid/Sodium Citrate Solution 30 Ml Cup) Confirm Administered Dose 30 ml .ROUTE .STK-MED ONE Stop: 07/12/20 10:35 Last Admin: 07/14/20 03:57 Dose: Not Given Documented by: Ephedrine Sulfate (Ephedrine Sulfate 50 Mg/10 Ml Vial) Confirm Administered Dose 50 mg .ROUTE .STK-MED ONE Stop: 07/12/20 12:13 Furosemide (Furosemide 20 Mg Tab) 20 mg PO ONETIME ONE Stop: 07/14/20 17:01 Last Admin: 07/14/20 17:04 Dose: 20 mg Documented by: Hydroxyzine HCl (Hydroxyzine Hcl 25 Mg Tab) 50 mg PO ONETIME ONE Stop: 07/12/20 23:29 Last Admin: 07/12/20 23:41 Dose: 50 mg Documented by: Cefazolin Sodium/Dextrose 2 gm (/ Premix) 50 mls @ 100 mls/hr IV ONETIME ONE Stop: 07/12/20 10:36 Last Admin: 07/14/20 03:57 Dose: Not Given Documented by: Sodium Chloride (Normal Saline) Confirm Administered Dose 20 mls @ as directed .ROUTE .STK-MED ONE Stop: 07/12/20 10:26 Ceftriaxone Sodium/Dextrose (Rocephin In Dextrose,Iso-Osm 1 Gm/50 Ml) 50 mls @ 200 mls/hr IV ONETIME ONE Stop: 07/15/20 05:17 Last Admin: 07/15/20 05:19 Dose: 200 mls/hr Documented by: Ceftriaxone Sodium/Dextrose (Rocephin In Dextrose,Iso-Osm 1 Gm/50 Ml) Confirm Administered Dose 50 mls @ as directed .ROUTE .STK-MED ONE Stop: 07/15/20 05:09 Ketorolac Tromethamine (Ketorolac 30 Mg/Ml Sdv) 30 mg IVPUSH Q6H MATTIE Stop: 07/13/20 11:46 Last Admin: 07/13/20 13:32 Dose: 30 mg Documented by: Morphine Sulfate (Morphine Pf 10 Mg/10 Ml Sdv) Confirm Administered Dose 10 mg .ROUTE .STK-MED ONE Stop: 07/12/20 10:35 Octyl Cyanoacrylate (Octyl 2-Cyanoacrylate 1 Tube) Confirm Administered Dose 1 applic .ROUTE .STK-MED ONE Stop: 07/12/20 10:44 Last Admin: 07/14/20 03:57 Dose: Not Given Documented by: Oxycodone/Acetaminophen (Acetaminophen/Oxycodone 325-5 Mg Tab) 2 tab PO Q4H PRN PRN Reason: Pain (moderate 4-6) Oxytocin (Oxytocin 10 Units/1 Ml Sdv) Confirm Administered Dose 20 unit .ROUTE .STK-MED ONE Stop: 07/12/20 10:25 - Interaction Disposition, : in Room with Family Infant Interaction: Other (see below) (FOB holding baby) Infant Feeding: Bottle Fed Support Person: - Recovery Exam Fundal Tone: Firm Fundal Level: At Umbilicus Fundal Placement: Midline Lochia Amount: Scant Lochia Color: Rubra/Red Perineum Description: Intact, Minimal Bruising/Swelling Episiotomy/Laceration: None Bladder Status: Voiding, Indwelling Catheter in Place Urinary Elimination: Voided, Other (see below) Other Urinary Elimination, : attempted to void but could not - Exam General: Alert, Oriented HEENT: Pupils Equal Lungs: Decreased Breath Sounds (Crackles at the base of the lungs) Cardiovascular: Regular Rate GI/Abdominal Exam: Distended, Tender Extremities: Pedal Edema Wound/Incisions: Healing Well - Problem List & Annotations (1) S/P primary low transverse SNOMED Code(s): 416631579, 08299072, 508897743, 856966384, 176570543 Code(s): Z98.891 - HISTORY OF UTERINE SCAR FROM PREVIOUS SURGERY Status: Acute Priority: High Current Visit: Yes (2) Hypoglycemia after GI (gastrointestinal) surgery SNOMED Code(s): 551655585 Code(s): K91.2 - POSTSURGICAL MALABSORPTION, NOT ELSEWHERE CLASSIFIED Status: Acute Current Visit: Yes (3) Ileus, postoperative SNOMED Code(s): 856437300 Code(s): K91.89 - OTH POSTPROCEDURAL COMPLICATIONS AND DISORDERS OF DGSTV SYS; K56.7 - ILEUS, UNSPECIFIED Status: Acute Current Visit: Yes - Problem List Review Problem List Initiated/Reviewed/Updated: Yes - My Orders Last 24 Hours: My Active Orders 07/15/20 04:08 CULTURE BLOOD [BC] Stat CULTURE BLOOD [BC] Stat Blood Culture x2 Reflex Set [OM.PC] Stat 07/15/20 04:40 CULTURE URINE [RM] Routine 07/15/20 07:02 Dextrose 25% in Water 20 ml IVPUSH ONETIME ONE 07/15/20 07:04 Abdomen Pelvis wo Cont [CT] Routine Chest wo Cont [CT] Routine - Plan Plan:: PP Day3 A: Kang cath removed and voiding. Hypothermic (94-96), hypoglycemic and diaphoretic. WBC 3.5 SOB and lower lobes crackles on auscultation. O2 sat have been normal for the most part. Low concern for PE. DDx includes UTI, Pneumonia, sepsis, Ileus vs SBO. CXR showed atelectasis of lower lobes Abd Xray with air-filled bowel Recommend a CT. P: Per assessment of work-up and clinical evaluation and discussion with On-call medicine, Patient does not fit a picture of sepsis. Likely Ileus vs SBO. Will obtain a CT abdomen and chest. Ordered blood cultures, CBC, CMP and UA + UCx Hypoglycemia treated with D5 50% and IVF 1/2 D5 Patient received 1g IV ceftriaxone for concern of UTI. Routine plan of care.
--- NOTE | 2020-07-15 09:02 | CT ---
INDICATION: Atelectasis. COVID positive. Hyperglycemia. . TECHNIQUE: CT chest without contrast. COMPARISON: None FINDINGS: Lungs and pleura: There are diffuse bilateral patchy ground-glass infiltrates. Bilateral symmetrical consolidations are in the posterior lung bases. No pleural effusions, pleural thickening, or pneumothorax. Heart and vasculature: Heart size is normal. Thoracic aorta and pulmonary artery are normal in caliber. Lymph nodes/mediastinum: No mediastinal, hilar, or axillary adenopathy. Thyroid gland is normal. Chest wall: No masses. Upper abdomen: Findings in the abdomen will be detailed on a separate CT abdomen pelvis report. Bones: Unremarkable for age. IMPRESSION: Acute moderately severe COVID pneumonitis. Please note that all CT scans at this facility use dose modulation, iterative reconstruction, and/or weight-based dosing when appropriate to reduce radiation dose to as low as reasonably achievable. Dictated by Babar Trejo MD @ 07/15/2020 9:01:[address] Babar Trejo @ Jul 15 2020 9:01AM
--- NOTE | 2020-07-15 09:06 | CT ---
INDICATION: Abdominal distention and tenderness. Postop day 3 . TECHNIQUE: CT abdomen and pelvis without contrast. COMPARISON: None. FINDINGS: Lower chest: Details in the chest are provided on a separate CT chest report. Liver: Normal in size and attenuation. No masses. Gallbladder and bile ducts: Few small gallbladder stones. Otherwise unremarkable. Pancreas: Unremarkable. No mass or inflammation. Spleen: Normal in size. No masses. Adrenal glands: Normal in size. No nodules. Kidneys: Normal in size. No suspicious masses, stones, or hydronephrosis. GI tract: Stomach is moderately distended with fluid. Remainder of the GI tract is normal in caliber and appearance. No obstructive changes. Vasculature: Abdominal aorta normal in caliber. Lymph nodes: No lymphadenopathy. Abdominal wall/Omentum/Peritoneum: Relatively large amount of free fluid in the abdomen and pelvis with loculated components. Hounsfield units of this fluid is less than 10 consistent with ascites type fluid. No convincing evidence for hemorrhage or hematoma. There is expected free air. Pelvis: uterus. Nondependent air present in the urinary bladder which is mildly distended with fluid but otherwise unremarkable. Bones: Unremarkable for age. IMPRESSION: 1. Relatively large amount of ascitic type fluid in the abdomen with loculated components. This is more than what is typically seen postoperatively. 2. Postoperative changes otherwise within normal limits. 3. Moderate fluid distention of the stomach. GI tract is otherwise unremarkable. Please note that all CT scans at this facility use dose modulation, iterative reconstruction, and/or weight-based dosing when appropriate to reduce radiation dose to as low as reasonably achievable. Dictated by Babar Trejo MD @ 07/15/2020 9:05:[address] Babar Trejo @ Jul 15 2020 9:05AM
[2020-07-15] MEDS ORDERED: Dexamethasone 4 MG/ML SDV IVPUSH ONE (09:45)
[2020-07-15] MEDS ORDERED: Dextrose 5%-Lactated Ringers 1,000 ML IV ONE (10:00)
[2020-07-15] MEDS ORDERED: REMDESIVIR 200 MG in Sodium Chloride 0.9% 250 ML IV ONE (10:00)
--- NOTE | 2020-07-15 11:09 | PN ---
[facility] Physician - Brief Progress GytpTEVSRXNOF90/29/2021 10:20[facility] Giovanni Knutson, [place] - WINIFRED (MONIE) - WINIFRED RIBEIROTed DANTE REED, COVID+Date of Service 07/15/2020 1 0:20HPI/Events of Note eICU admission [id number] female currently admitted to the ICU for acute hypoxic respiratory failure secondary to COVID-19. Patient initially admitted on 07/12/2020 for C-sec tion at 38 weeks and underwent uncomplicated surgery at that time. Patient was noted to be hypoxic r equiring upwards of 6 L nasal cannula which was eventually weaned down to room air. Postoperatively patient had relatively good course with being able to ambulate and pain control had been adequate. Ov ernight from 07/14 to 07/15 patient became hypothermic(94) as well as hypoglycemic down to blood glucos e of 22. Bedside team initiated sepsis workup and started emprically on ceftriaxone for UTI. She unde rwent CT chest which revealed bilateral pulmonary infiltrates consistent with Covid pneumonitis. CT abdomen revealed ascites without concern for any hematoma/hemorrhage as well as normal post operative changes.Patient seen on camera, sitting up in bed, does not appear to be in acute distress at this t camelia and appears comfortable. NG tube and Nasal canula in placeVital signs reviewed. HR 130sLabs/EMR /imaging reviewedSepsis-Unclear etiology at this time-Tachycardic, Leukopenic, hypoxic on 2L-UA negat micheal, CT abd with ascites and no other acute findings. CT chest consistent with COVID pneumonitis (wit hout contrast). -Agree with broad spectrum Abx coverage with Vanc/Zosyn. Ordered blood cultures, proc alcitonin and lactate. -Recommend to continue decadron to complete course. -Recommend discussing with ID in regards to Remdesevir (unclear duration of symptoms)-Recommend LE duplex scan to workup for VT E. If negative, will need to consider CT chest with contrast. -Recommend keeping patient euvolemic, s trict I/O's and daily weight trend. Agree with holding off on diuresis today but likely can resume to hairston if BP allows. -If patient has worsening abdominal pain, can consider diagnostic paracentesis t o rule out SBP. -Recommend frequent BG checks, as patient is now on Decadron, hypoglycemia should not be an issue. Thank you for allowing us to participate in the care of this patient. Unless otherwise specified defer implementation of above recommendations to bedside provider. Please do not hesitate t o contact eICU for any questions, clarification or assistance with implementation of above.Interventi ons Major-Hypoxemia - evaluation and management, Infection - evaluation and management, Sepsis - eval uation and management
--- NOTE | 2020-07-15 11:16 | CR ---
Indication: Tube placement. Technique: Abdomen 1 view. Comparison: CT abdomen pelvis July 15, 2020. Impression: NG tube is in satisfactory position with the tip in the mid stomach. Re-demonstration of pulmonary infiltrates. No other acute abnormality evident. Dictated by Babar Trejo MD @ 07/15/2020 11:14:[address] Babar Trejo @ Jul 15 2020 11:14AM
[2020-07-15] MEDS ORDERED: Morphine 2 MG/ML SYRINGE IVPUSH PRN (11:23)
--- NOTE | 2020-07-15 11:52 | PCM.CONS ---
H&P History of Present Illness - General Date of Service: 07/15/20 Admit Problem/Dx: Patient Status Order with Admit Dx/Problem 07/12/20 09:10 Patient Status [ADT] Routine 07/12/20 11:00 Admission Status [Patient Status] [ADT] Routine Admission Diagnosis/Problem Admission Diagnosis/Problem - History of Present Illness Initial Comments - Free Text/Narative: Patient is a 40 y/o F admitted to ICU for Acute hypoxic respiratory failure sec. to COVID-19. Patient was admitted on 07/12/20 at 38 weeks for CS, the CS was was done with no known complications except that there was a lot of scarring encountered from patients previous myomectomy surgery. Patient has needed 6 L of oxygen via NC and was eventually weaned off to room air. Upon chart review patient was hypothermic and tachycardiac for 24 to 48 hours, BP was stable, over night on 07/15 patient was found to have increasing abdominal distension, she was also hypoglycemic, patients hemodynamics were stable, Medicine was called for recs while basic labs and xray abdomen were pending, IV rocephin was given for UTI , it was recommenced to obtain stat CT abdomen, CXR, stat CBC, CMP, blood cultures, dextrose IV 50% 1/2 amp, and also start patient on dextrose LR, and given IV Zosyn. Several attempts were made for the blood draw but only few labs could be drawn, blood cultures were no drawn as a result. Patients CT abdomen moderate fluid distension of stomach, and showed large ascites fluid with loculated components, no hematoma/hemorrhage and normal post op changes. CT chest showed b/l pulmonary infiltrates consistent with covid pneumonia, showed large amount of fluid in stomach. Patient was admitted to ICU and medicine team is on consult for sepsis and respiratory failure. NG tube was placed as well,, Patient eventually ended up having IJ central line as there was one 1 IV access, and patient needed stat antibiotics and fluids. 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 Denies: Fever Pulmonary: Reports: Shortness of Breath. Denies: Pleuritic Chest Pain, Sputum Cardiovascular: Reports: Dyspnea on Exertion. Denies: Chest Pain, Palpitations Gastrointestinal: Reports: Abdominal Pain, Constipation, Decreased Appetite, Nausea. Denies: Anorexia, Black Stool, Vomiting Genitourinary: Denies: Frequency, Burning Musculoskeletal: Denies: Shoulder Pain, Arm Pain Skin: Denies: Jaundice, Mottled, Pallor Psychiatric: Denies: Depression, Mood Lability, Anxiety Neurological: Denies: Dizziness, Headache, Numbness Exam - Exam Exam: See Below - Vital Signs Vital Signs: Last Vital Signs Temp 35.7 C L 07/15/20 06:55 Pulse 113 H 07/15/20 06:55 Resp 23 H 07/15/20 06:55 BP 134/87 07/15/20 06:55 Pulse Ox 93 L 07/15/20 06:55 Weight: 65.317 kg - Exam Quality Assessment: Supplemental Oxygen General: Alert, Oriented, Mild Distress HEENT: Conjunctiva Clear Neck: Supple Lungs: Decreased Breath Sounds, Crackles Cardiovascular: Regular Rate, Normal S1, Normal S2 GI/Abdominal Exam: Distended, Tender, Abnormal Bowel Sounds, Splenomegaly. No: Soft, Hepatomegaly Extremities: Normal Inspection, Normal Range of Motion - Patient Data Lab Results Last 24 hrs: Laboratory Results - last 24 hr 07/12/20 07/15/20 07/15/20 Range/Units 13:05 04:30 04:30 WBC 3.69 L (4.0-11.0) K/uL RBC 5.74 (4.30-5.90) M/uL Hgb 15.8 (12.0-16.0) g/dL Hct 44.3 (36.0-46.0) % MCV 77.2 L (80.0-98.0) fL MCH 27.5 (27.0-32.0) pg MCHC 35.7 (31.0-37.0) g/dL RDW Std Deviation 40.8 (28.0-62.0) fl RDW Coeff of Janeth 15 (11.0-15.0) % Plt Count 353 (150-400) K/uL MPV 10.90 (7.40-12.00) fL Nucleated RBC % 1.5 /100WBC Nucleated RBCs # 0 K/uL Sodium (136-145) mmol/L Potassium (3.5-5.1) mmol/L Chloride (98-107) mmol/L Carbon Dioxide (21.0-32.0) mmol/L BUN (7.0-18.0) mg/dL Creatinine (0.6-1.0) mg/dL Est Cr Clr Drug Dosing mL/min Estimated GFR (MDRD) ml/min Glucose 19 L* (74-106) mg/dL Calcium (8.5-10.1) mg/dL Total Bilirubin (0.2-1.0) mg/dL AST (15-37) IU/L ALT (14-63) IU/L Alkaline Phosphatase (46-116) U/L Total Protein (6.4-8.2) g/dL Albumin (3.4-5.0) g/dL Globulin (2.6-4.0) g/dL Albumin/Globulin Ratio (0.9-1.6) Urine Color Urine Appearance Urine pH (5.0-8.0) Ur Specific [place] (1.001-1.035) Urine Protein (NEGATIVE) mg/dL Urine Glucose (UA) (NEGATIVE) mg/dL Urine Ketones (NEGATIVE) mg/dL Urine Occult Blood (NEGATIVE) Urine Nitrite (NEGATIVE) Urine Bilirubin (NEGATIVE) Urine Ictotest Urine Urobilinogen (<2.0) EU/dL Ur Leukocyte Esterase (NEGATIVE) U Hyaline Cast (Auto) (0-2/LPF) Urine RBC (0-2/HPF) Urine WBC (0-5/HPF) Ur Epithelial Cells (NONE-FEW) Urine Bacteria (NEGATIVE) Urine Mucus (NONE-MOD) RPR Non-Reac (Non-Reac) 07/15/20 07/15/20 Range/Units 04:30 04:40 WBC (4.0-11.0) K/uL RBC (4.30-5.90) M/uL Hgb (12.0-16.0) g/dL Hct (36.0-46.0) % MCV (80.0-98.0) fL MCH (27.0-32.0) pg MCHC (31.0-37.0) g/dL RDW Std Deviation (28.0-62.0) fl RDW Coeff of Janeth (11.0-15.0) % Plt Count (150-400) K/uL MPV (7.40-12.00) fL Nucleated RBC % /100WBC Nucleated RBCs # K/uL Sodium 136 (136-145) mmol/L Potassium 5.3 H (3.5-5.1) mmol/L Chloride 102 (98-107) mmol/L Carbon Dioxide 13.0 L (21.0-32.0) mmol/L BUN 31 H (7.0-18.0) mg/dL Creatinine 1.0 (0.6-1.0) mg/dL Est Cr Clr Drug Dosing 61.86 mL/min Estimated GFR (MDRD) > 60.0 ml/min Glucose 22 L* (74-106) mg/dL Calcium 7.3 L (8.5-10.1) mg/dL Total Bilirubin 0.2 (0.2-1.0) mg/dL AST 53 H (15-37) IU/L ALT 16 (14-63) IU/L Alkaline Phosphatase 105 (46-116) U/L Total Protein 4.8 L (6.4-8.2) g/dL Albumin 1.4 L (3.4-5.0) g/dL Globulin 3.4 (2.6-4.0) g/dL Albumin/Globulin Ratio 0.4 L (0.9-1.6) Urine Color DARK YELLOW Urine Appearance SLT CLOUDY Urine pH 5.5 (5.0-8.0) Ur Specific [place] 1.025 (1.001-1.035) Urine Protein 30 H (NEGATIVE) mg/dL Urine Glucose (UA) NEGATIVE (NEGATIVE) mg/dL Urine Ketones NEGATIVE (NEGATIVE) mg/dL Urine Occult Blood MODERATE H (NEGATIVE) Urine Nitrite NEGATIVE (NEGATIVE) Urine Bilirubin MODERATE H (NEGATIVE) Urine Ictotest NEGATIVE Urine Urobilinogen 1.0 (<2.0) EU/dL Ur Leukocyte Esterase NEGATIVE (NEGATIVE) U Hyaline Cast (Auto) 0-2 (0-2/LPF) Urine RBC 3-6 (0-2/HPF) Urine WBC 0-3 (0-5/HPF) Ur Epithelial Cells RARE (NONE-FEW) Urine Bacteria FEW (NEGATIVE) Urine Mucus LIGHT (NONE-MOD) RPR (Non-Reac) Result Diagrams: 07/15/20 04:30 07/15/20 04:30 Sepsis Event Note - Evaluation Sepsis Screening Result: Sepsis Risk Current Stage of Sepsis: Sepsis - Focused Exam Sepsis Event Note Statement: Focused Sepsis Exam Completed Vital Signs: Vital Signs Temp Pulse Resp BP Pulse Ox 07/15/20 06:55 35.7 C L 113 H 23 H 134/87 93 L 07/15/20 03:00 29.2 C L 107 H 24 H 106/78 96 Consult PN Assessment/Plan Procedures: Procedures ASSAY OF GONADOTROPIN (FSH) (12/17/17) ASSAY OF GONADOTROPIN (LH) (12/17/17) ASSAY OF PROGESTERONE (02/06/18) ASSAY OF PROLACTIN (12/17/17) ASSAY OF TOTAL ESTRADIOL (12/17/17) ASSAY THYROID STIM HORMONE (12/17/17) BLOOD TYPING SEROLOGIC ABO (01/12/20) BLOOD TYPING SEROLOGIC RH(D) (01/12/20) CALE DNA DIR PROBE (06/25/20) CATHETER FOR HYSTEROGRAPHY (12/21/17) CHORIONIC GONADOTROPIN TEST (11/20/19) CHYLMD TRACH DNA AMP PROBE (01/12/20) COMPLETE CBC AUTOMATED (04/07/20) COMPREHEN METABOLIC PANEL (01/06/20) DRUG TEST PRSMV DIR OPT OBS (01/12/20) VILLA VAG DNA DIR PROBE (06/25/20) GLUCOSE TEST (04/07/20) GLYCOSYLATED HEMOGLOBIN TEST (01/06/20) HEPATITIS B SURFACE AG IA (01/12/20) HEPATITIS C AB TEST (01/12/20) HIV-1 AG W/HIV-1 & -2 AB AG IA (01/12/20) LIPID PANEL (01/06/20) N.GONORRHOEAE DNA AMP PROB (01/12/20) OB US >/= 14 WKS SNGL FETUS (03/08/20) PROTHROMBIN TIME (04/14/19) RBC ANTIBODY SCREEN (04/07/20) ROUTINE VENIPUNCTURE (04/07/20) RUBELLA ANTIBODY (01/12/20) STREP B DNA AMP PROBE (06/25/20) SYPHILIS TEST NON-TREP QUAL (01/12/20) TB TEST CELL IMMUN MEASURE (04/09/19) THROMBOPLASTIN TIME PARTIAL (04/14/19) TRANSVAGINAL US OBSTETRIC (03/08/20) TRICHOMONAS VAGIN DIR PROBE (06/25/20) URINALYSIS AUTO W/O SCOPE (01/12/20) URINE CULTURE/COLONY COUNT (01/12/20) VITAMIN D 25 HYDROXY (01/06/20) X-RAY EXAM CHEST 2 VIEWS (04/29/19) X-RAY FEMALE GENITAL TRACT (12/21/17) (1) Acute respiratory failure with hypoxia SNOMED Code(s): 06625401, 701604618 Code(s): J96.01 - ACUTE RESPIRATORY FAILURE WITH HYPOXIA Current Visit: Yes (2) Ascites SNOMED Code(s): 791781224 Code(s): R18.8 - OTHER ASCITES Current Visit: Yes (3) Hypoglycemia after GI (gastrointestinal) surgery SNOMED Code(s): 549501197 Code(s): K91.2 - POSTSURGICAL MALABSORPTION, NOT ELSEWHERE CLASSIFIED Current Visit: Yes (4) Ileus, postoperative SNOMED Code(s): 564432156 Code(s): K91.89 - OTH POSTPROCEDURAL COMPLICATIONS AND DISORDERS OF DGSTV SYS; K56.7 - ILEUS, UNSPECIFIED Current Visit: Yes (5) S/P primary low transverse SNOMED Code(s): 656210486, 19571227, 700749734, 559011217, 377946767 Code(s): Z98.891 - HISTORY OF UTERINE SCAR FROM PREVIOUS SURGERY Priority: High Current Visit: Yes (6) Sepsis SNOMED Code(s): 36368574 Code(s): A41.9 - SEPSIS, UNSPECIFIED ORGANISM Current Visit: Yes Problem List Initiated/Reviewed/Updated: Yes Plan: 40 y/o F admitted to icu for sepsis, possible source pulmonary vs intraabdominal Start 30 cc/kg IV fluids, check lactate start IV vancomycin and Zosyn f/u on blood cultures f/u on urine cultures cont NPO, NG tube management Insert Kang for accurate ins and out Combivent as needed NC fbor oxygenation IV remdesivir and IV dexamethasone Lovenox for dvt ppx Daily labs, monitor and replete electrolytes' check PT/INR
[2020-07-15] MEDS: Docusate Sodium 100 MG Cap PO SCH (14:11)
[2020-07-15] MEDS: Dextrose 5%-Lactated Ringers 1,000 ML IV SCH ×2 (15:09→18:30)
--- NOTE | 2020-07-15 15:14 | PCM.SN.2 ---
Central Line Insertion - Central Line Insertion Site: subclavian (R) Prep: Sterile Drapes, Chlorhexidine Local Anesthesia - Lidocaine (Xylocaine): 1% Plain Local Anesthetic Volume: 5cc Ultrasound guided: Yes CL Complications: No Secured with suture: Yes Post placement confirmation: CXR, all ports aspirated Dressing applied: by provider
--- NOTE | 2020-07-15 15:19 | CR ---
Indication: Central line placement Comparison: Single view chest July 15, 2020 Technique: Single AP view chest Findings: Again seen are extensive interstitial and airspace opacities throughout the bilateral hemithoraces likely representing edema versus multifocal infiltrate. There is stable nasogastric tube. Interval placement of right IJ central venous catheter with the tip likely within the right atrium. Consider pulling back approximately 5-7 centimeters into the mid superior vena cava and cavoatrial junction. The cardiac silhouette is mildly prominent. The bony thorax is grossly intact. Impression: Again seen are extensive interstitial and airspace opacities throughout the bilateral hemithoraces likely representing multifocal infiltrates. Interval placement of right IJ central venous catheter which is somewhat low lying likely projecting over the right atrium. If there is persistent clinical concern consider pulling back approximately 5 centimeters to position within the mid superior vena cava and there were cavoatrial junction. No evidence of pneumothorax. Dictated by Caleb Richards MD @ 07/15/2020 3:17:[address] Caleb Richards @ Jul 15 2020 3:17PM
[2020-07-15] MEDS ORDERED: Dextrose 5%-Lactated Ringers 1,000 ML IV SCH (15:30)
[2020-07-15] MEDS ORDERED: Diatrizoate Meglumine 18% w/v 300 ML Bottle IUTERINE STA (15:34)
--- NOTE | 2020-07-15 15:56 | CR ---
INDICATION: History of myomectomy. Rule out bladder injury. TECHNIQUE: KUB and 7 images from a cystogram. COMPARISON: Today`s abdomen/pelvis CT. FINDINGS: The filled bladder demonstrates grossly normal configuration. No extravasation of contrast material is evident. IMPRESSION : Negative cystogram. Dictated by Madhu Nixon MD @ 07/15/2020 3:54:[address] Madhu Nixon @ Jul 15 2020 3:54PM
--- NOTE | 2020-07-15 16:57 | CR ---
HISTORY: Recheck IJ line placement. COMPARISON: From earlier today at 1414 hours FINDINGS: A portable semi-erect AP view of the chest was obtained at 16 20 hours. During the interval, the right internal jugular central line has been withdrawn and the tip is now in satisfactory position at the cavoatrial junction. There is no sign of pneumothorax. A nasogastric tube is again seen passing into the body of the stomach. There has been a decrease in atelectasis in the medial right lung base, with clearing of the right hemidiaphragm, with mild patchy residual atelectasis. There has been decreased patchy infiltrate scattered throughout the perihilar regions bilaterally, consistent with improving atelectasis versus congestive failure. There continues to be mild patchy atelectasis in the left lung base. The heart remains normal in size. The mediastinum is normal in appearance. The osseous structures are normal in appearance for the patient`s age. IMPRESSION: Satisfactory positioning of right internal jugular central line status post withdrawal, tip now at the cavoatrial junction. Continued satisfactory positioning of NG tube. Improvement in mild congestive failure versus mild bilateral patchy perihilar atelectasis. Improvement in atelectasis of the medial right lung base, now mild. Dictated by Rj Kenney MD @ 07/15/2020 4:57:[address] Rj Kenney @ Jul 15 2020 4:57PM
[2020-07-15] MEDS ORDERED: 50% Dextrose in Water 50 ML Syringe IVPUSH PRN (17:32)
[2020-07-15] MEDS ORDERED: Piperacillin/Tazobactam 4.5 GM in Sodium Chloride 0.9% 100 ML IV SCH (18:00)
[2020-07-15] MEDS ORDERED: Lactated Ringers 1,000 ML IV ONE (19:00)
[2020-07-15] MEDS ORDERED: Meropenem 2 GM in Sodium Chloride 0.9% 100 ML IV SCH (19:15)
[2020-07-15 19:21] LABS: POTASSIUM,K 4.2 mmol/L (3.5-5.1)
[2020-07-15] MEDS ORDERED: Magnesium Sulfate/Water 2 GM/50 ML BAG IV ONE (19:33)
[2020-07-15] MEDS ORDERED: MEROPENEM IV SCH (20:00)
[2020-07-15] MEDS ORDERED: LORazepam 2 MG/ML SDV IVPUSH ONE (20:13)
[2020-07-15] MEDS ORDERED: Dextrose 10% in Water 1,000 ML IV SCH (20:15)
--- NOTE | 2020-07-15 20:18 | PN ---
[facility] Physician - Brief Progress [id number]/29/2021 20:00[facility] Giovanni Knutson, [place] - WINIFRED (MONIE) - WINIFRED ICUDANTE CHAVEZ, COVROLAN+Date of Service 07/15/2020 2 0:00HPI/Events of Note eICU updateDiscussed patient with excellent bedside physician in regards to wo rsening sepsis. Patient initially with a lactate of 4.5 which is up trended to 5.7 after sepsis bolu s and continuation of IV fluids. Patient has been escalated on antibiotics from vancomycin/Zosyn to vancomycin and meropenem. Patient does have slight uptrending creatinine to 1.2 despite getting adeq uately resuscitated with IV fluids. Patient also remains hypoglycemic and was initiated on D5/LR dur ing the course of the day today as well.Plan-Agree with broadening antibiotic coverage with vancomyci n and meropenem. If patient becomes further septic/hypotensive recommend escalating further with add ition of antifungal coverage with Eraxis/micafungin-Recommend albumin 5% 500 mL bolus at this time. Repeat lactate in a few hours.-If lactate remains persistently elevated agree with bedside physician will need CT abdomen to rule out ischemic colitis and also obtain CT PE protocol at the same time.-Re commend stopping D5/LR maintenance fluids as patient has significant hypoalbuminemia and this likely will third space. Recommend initiating D10 to help with hypoglycemia. And give IV fluid/albumin miguel us as needed.-If work-up tonight is relatively unremarkable will need IR guided paracentesis to rule out peritonitis as possible etiology for patient's ongoing sepsis.Interventions Major-Infection - carlos luation and management, Sepsis - evaluation and management
--- NOTE | 2020-07-15 20:24 | PCM.SN.2 ---
- Free Text/Narrative Note: notified by RN lactate trending up, patients tachycardia is getting better, BP is on higher side, stat CBC, CMP obtained, shows some elevation of creatinine, bicarb improving. Given patients GI symptoms and elevated lactate , ischemic colitis is high on differential vs worsening sepsis due to possible peritonitis Findings unlikely due to covid pneumonia as respiratory status has improved, hypoxia and atelectasis has resolved after stomach decompression Will give IV fluid bolus, recheck lactate again in <6 hours bolus with albumin 5% start dextrose 10% fluids If no significant improvement in lactate or trends higher will get CTA abd and pelvis to r/o occlusive thrombus to r/o ischemic colitis Will continue to monitor closely
[2020-07-15] MEDS ORDERED: Albumin 5% 500 ML IV ONE (20:30)
[2020-07-15] MEDS ORDERED: Dextrose 10% in Water 500 ML IV SCH (20:45)
[2020-07-15] MEDS ORDERED: Enoxaparin 40 MG/0.4 ML Syringe SUBCUT SCH (21:00)
[2020-07-15] MEDS: Piperacillin/Tazobactam 4.5 GM in Sodium Chloride 0.9% 100 ML IV SCH ×2 (21:03→21:05)
[2020-07-15] MEDS: 50% Dextrose in Water 50 ML Syringe IVPUSH PRN ×2 (21:30→23:21)
[2020-07-15] MEDS ORDERED: Diltiazem 25 MG/5 ML SDV IVPUSH ONE ×2 (22:03→22:36)
[2020-07-15] MEDS ORDERED: Diltiazem 25 MG/5 ML SDV ONE (22:05)
[2020-07-15] MEDS ORDERED: Digoxin 500 MCG/2 ML Amp IVPUSH ONE (23:09)
--- NOTE | 2020-07-15 23:13 | PN ---
[facility] Physician - Brief Progress NjdbRUZIAWSTO19/29/2021 23:08[facility] Giovanni zurita, [place] - KAYCEN (MONIE) - MWN ICUDANTE CHAVEZ, SHARYN+Date of Service 07/15/2020 2 3:08HPI/Events of Note Notified by bedside RN that patient went into A fib with RVRBedside doctor has given a total of 40 mg IV diltiazemHR is in 110sRN told me that the patient is agitated and confused and was given ativan by bedside MDOn camera, she is restless and tachycardic, not hypotensiveBelly e xam is unchangedHas been given fluid resuscitation as well as ambuminPlan:Start precedex infusionMay need diltiazem infusion if rate remains uncontrolled despite precedex Will need to consider scanning head, chest and abdomen pelvis with contrast to look at potential PE/ belly ischemia Check a CBC BMP and magm with lactate nowBedside MD coming in, have requested that I be called to discuss May need to transfer her to a higher care centerInterventions Major-Arrhythmia - evaluation and management, Seps is - evaluation and management
[2020-07-15] MEDS ORDERED: Dexmedetomidine 200 MCG/2 ML SDV IV SCH (23:15)
[2020-07-15 23:30] LABS: CARBON DIOXIDE,CO2 17.6 mmol/L (21.0-32.0); POTASSIUM,K 4.5 mmol/L (3.5-5.1)
--- NOTE | 2020-07-15 23:39 | PN ---
[facility] Physician - Brief Progress FykkYEAYLNHJS65/29/2021 23:37[facility] [place] yudith Giovanni, BILLIE - WINIFRED (MONIE) - DANTE ANDERSON, COVID+Date of Service 07/15/2020 2 3:37HPI/Events of Note Spoke with patient's MD who is at bedsideMD notes that patient appears worse a nd belly is also more distendedShe is discussing with mop worker and going to initiate transfer to a high care centerRecommendations conveyed to [facility] call us if neededI see that lactate is 5.7, bobo rn for intra abdominal ischemic processInterventions Major-Change in mental status - evaluation and m anagement
[2020-07-16] MEDS ORDERED: Diltiazem 25 MG/5 ML SDV IVPUSH ONE
[2020-07-16] MEDS: Diltiazem 100 MG in Sodium Chloride 0.9% 100 ML IV SCH ×2 (00:16→02:33)
--- NOTE | 2020-07-16 01:14 | PCM.SN.2 ---
- Free Text/Narrative Note: pt seen , chart reviewed; [id number]; elevated lactate acid, with an abd tight like drum and large amt of free air pod#4 is rather unusual, likely possible perforated viscous, with b pleural effusion, and +ve covid, pt would have difficult for extubation, pt outweigh our facility, would benefit from transfer to tertiary care center for further management. recommendation dw Dr. Coughlin
[2020-07-16] MEDS: 50% Dextrose in Water 50 ML Syringe IVPUSH PRN (01:45)
--- NOTE | 2020-07-16 03:00 | PCM.SN.2 ---
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 After NG tube was placed patients oxygen requirement drastically improved, she was on room air, implying hypoxia was possible from abdominal pressure causing atelectasis rather than Covid-19, Bed side cystoscopy was performed by Dr Forrester after IJ was established to r/o bladder rupture/leak which reportedly was negative. I was also informed that patient passed some gas in afternoon, as suggested in my note earlier patients initial lactate was high, so aggressive IV fluids were given but lactate trended up so possibility of ischemic gut vs worsening peritonitis was considered, primary team was informed of increasing lactate, in the mean time i escalated the IV antibiotics therapy and started patient on hypertonic D10 water for intravascular resuscitation and gave IV albumin bolus, and LR bolus, EICU recommended if lactate does not start resolving or starts raising further after adequate antibiotic coverage and fluids to consider CTA abd/pelvis and chest to r/o microemboli causing ischemic gut. Pending next lactate, Around 10 pm i was informed patient is in Afib RVR, patient was again hypoxic requiring 5 -6 Lts of nasal cannula, Patient had gotten increasingly agitated and pulled her NG tube out, EICU started Precedex, I ordered IV Cardizem 20 mg for heart rate control. I came to asses the patient MONI at bedside, patient was confused, her abdomen was more distended,and hard, no bowel sounds were heard, and there was concern of abdominal compartment syndrome due to ischemic colon. I instructed nurse to call Dr Forrester MONI about patients worsening abdominal distention and clinical deterioration, in the mean time patient was given another Cardizem, followed by IV digoxin with minimal control, after that patient was started on IV Cardizem, patient was briefly put on non rebreather but later switched back to NC. By this time repeat Lactate came back which trended up despite IV fluid hydration and IV antibiotics, I called EICU and we discussed about patient most likely needs to go to OR for exploratory laparotomy and needs general surgery to assess her. I discussed with Dr Forrester about my concerns of Abdominal compartment syndrome and I called Dr Liz , i spoke to her in detail and she recommended patient be asses by manager presentation surgeon, she concurred, given refractory lactate, patient likely has Abdominal compartment syndrome/ ischemic injury to gut, possible microperforation. Dr Mirza was contacted by Dr Forrester who came to assess the patient at bedside immediately. Meanwhile i was able to control patients HR with Cardizem bolus followed by gtt and her agitation improved after Precedex was titrated up, NG tube was reinserted, her BP was normal the entire time. Patient was seen by surgery , recommended transfer to a tertiary care hospital for possible exploratory laparotomy. Patient transferred out for higher level of care, family was informed as well.
--- NOTE | 2020-07-16 06:55 | CONS ---
DATE OF CONSULTATION: 07/16/2020 DATE OF : 1980 PRIMARY CARE PHYSICIAN: MD Dr. Yuki Golden was consulted by Dr. Coughlin for sepsis. HISTORY OF PRESENT ILLNESS: The patient is a 40-year-old lady and is postop day 4 from primary of 38 plus weeks, and in prior surgery had myomectomy. Had a primary low transverse incision on July 12. The patient was transferred to the ICU on postop day 4 for hypoxia secondary to COVID-19. The patient was hypoxic and requiring 6 L on nasal cannula and subsequently weaned down to room air. Postop, the patient has been ambulating and pain was controlled. In the morning, the patient was noted to be hypothermic as well as hypoglycemic with blood glucose of 22. The patient underwent CT, and reading was abdominal ascites as well as normal postop change. and chest CT > acute moderate severe pneumonitis; Broadband antibiotic was initiated and hospitalist was consulted for management of ICU admission. Surgery was consulted at around 12 midnight for possible Surgery consultation as Dr. Coughlin would like to take the patient to the operating room for sepsis. Upon consultation, the patient's lab value, white count is 4.85, H and H are 13 and 38, and platelets is 266. INR 1.38, and D-dimer is 20, normal is 0.5. Lactate has gradually moved up to 6.1 and BUN is 21, creatinine is 1.1. Total bilirubin is elevated at 1.4. PHYSICAL EXAMINATION: GENERAL/VITAL SIGNS: The patient is tachypneic with a respiratory rate of 22. HEENT: Normocephalic and atraumatic. Sclerae are anicteric. LUNGS: Decreased breath sounds. ABDOMEN: Distended. Tight like a drum. No bowel sounds. Pfannenstiel incision intact. DIAGNOSTIC DATA: Chest x-ray shows patchy infiltrate which is very common to COVID positive patients and bilateral pleural effusion. IMPRESSION AND PLAN: Postoperative day 4 with elevated lactic acid and on abd examination like a tight drum. The patient has possible viscus perforation. CAT scan report w expected free air, and postop day 4 it is rather unusual. However, with pleural effusion and the patient's COVID positive and with a lactic acid of 6.1 the patient may require extensive abdominal surgery, and with the COVID status and her pleural effusion, the patient probably will not be easy to extubate. This is also per Dr. Kimble the anesthesiologist. For the the best interest of the patient, the patient will need to be transferred to a tertiary care center for further management. Thanks for the consult and care of this pleasant patient. As always, thank for your kind referral. MICHELLE LUCAS /[id number] MTDD
[2020-07-16] MEDS ORDERED: REMDESIVIR 100 MG in Sodium Chloride 0.9% 100 ML IV SCH (10:00)
== END 2020-07-16 02:00 | DRG 540 ==
LOC: MW.OBCHECK 09:10 → MW.OB 09:15 → MW.OBCHECK 11:25 → MW.OB 11:26 → MW.ICU 07-15 09:34
PROVIDERS: ADMIT Obstetrics & Gynecology; ATTEND Obstetrics & Gynecology
PROC: 10D00Z1 Extraction of Products of Conception, Low, Open Approach (ICD-10-PCS; principal; 2020-07-12)
PROC: XW033E5 Introduction of Remdesivir Anti-infective into Peripheral Vein, Percutaneous Approach, New Technology Group 5 (ICD-10-PCS; 2020-07-12)
PROC: 0D9670Z Drainage of Stomach with Drainage Device, Via Natural or Artificial Opening (ICD-10-PCS; 2020-07-15)
PROC: 02HV33Z Insertion of Infusion Device into Superior Vena Cava, Percutaneous Approach (ICD-10-PCS; 2020-07-15)
DX: O34.29 Maternal care due to uterine scar from other previous surgery (principal); O85 Puerperal sepsis; O98.53 Other viral diseases complicating the puerperium; U07.1 COVID-19; N39.0 Urinary tract infection, site not specified; K21.9 Gastro-esophageal reflux disease without esophagitis; J96.01 Acute respiratory failure with hypoxia; J12.82 Pneumonia due to coronavirus disease 2019; K91.89 Other postprocedural complications and disorders of digestive system; K56.7 Ileus, unspecified; O99.52 Diseases of the respiratory system complicating childbirth; Z3A.38 38 weeks gestation of pregnancy; Z79.899 Other long term (current) drug therapy; Z37.0 Single live birth
CPT/HCPCS: 01961; 36415; 51701; 51702; 59025; 71045; 71045-26; 71250; 71250-26; 74018; 74018-26; 74176; 74176-26; 74430; 74430-26; 80053; 81001; 82947; 83605; 83735; 84100; 84145; 85014; 85018; 85025; 85027; 85379; 85610; 86592; 86850; 86900; 86901; 87040; 87086; 87088; 87186; A9270-GY; J0690; J0696; J1100; J1160; J1200; J1650; J1885; J2060; J2185; J2270; J2543; J2590; J3370; J3475; J3490; J7050; J7120; J7121; P9045; Q9958; U0002

== ENCOUNTER 2021-08-26 08:07 | Day surgery (SDC) | payer BC, OTHER ==
[~2021-08-26 08:07] MED LIST: Lactated Ringers 1,000 ML IV SCH
[2021-08-26] MEDS ORDERED: propofoL 50 ML ONE (08:44)
[2021-08-26] MEDS ORDERED: Midazolam 1 MG/ML 2 ML SDV ONE (08:45)
== END 2021-08-26 10:28 | disposition home or self-care (01) ==
LOC: MW.SDS 08:07
PROVIDERS: ATTEND Surgery
DX: Z12.11 Encounter for screening for malignant neoplasm of colon (principal); E55.9 Vitamin D deficiency, unspecified; M62.81 Muscle weakness (generalized); Z86.16 Personal history of COVID-19; Z98.890 Other specified postprocedural states
CPT/HCPCS: 45378; 81025; J2250; J2704; J7120; 00812